=== PATIENT | female | born 1945 | race Caucasian/White ===

== ENCOUNTER → 2016-11-06 | Outpatient (CLI) | payer OTHER ==
[~2016-11-06] MED LIST: ACETAMINOPHEN PO; ALBUTEROL17 GM INH; ALPHAGAN P10 ML OU; ALPHAGAN P5 ML OP; AMLODIPINE BESYL5 MG PO; ANTACID325 MG PO; ASPIRIN EC81 M1 PO; ASPIRIN81 M1 PO; ASPIRIN81 M2 PO; ATORVASTATIN CA80 MG PO; BACTRIM DS TABL1 TAB PO; BENAZEPRIL HCL5 M1 PO; BENAZEPRIL PO; BENTYL20 MG PO; BUMETANIDE1 MG PO; BUMEX1 MG PO; BUMEX2 MG PO; BUPROPION HCL150 M1 PO; CALCITRIOL PO; CALCITRIOL0.25 MCG PO; CARVEDILOL12.5 MG PO; CEPHALEXIN500 M1 PO; CHANTIX1 DOSE-PAC PO; CHANTIX1 MG PO; CIPRO PO; CLEOCIN PO; CLOPIDOGREL75 MG PO; COLACE PO; COMBIVENT MININEB INH; COMBIVENT RESPIM4 GM INH; COREG PO; COREG12.5 M1; COREG12.5 MG PO; COREG3.125 MG PO; DICYCLOMINE HCL20 MG PO; DULOXETINE HCL60 M1 PO; ENDOCET 5-3251 EACH PO; FERATE240 MG PO; FERROUS GLUCON324 M1 PO; FLOVENT DISKU100 MCG IH; FLOVENT DISKU100 MCG INH; GABAPENTIN300 MG PO; GLUCOPHAGE XR500 MG PO; IMDUR-ER60 M1 PO; IPRATR-ALBUTEROL3 ML NEB; LASIX20 MG PO; LEVAQUIN PO; LEVAQUIN750 MG PO; LIPITOR40 MG PO; LISINOPRIL PO; LISINOPRIL20 MG PO; LOPRESSOR PO; LORTAB 10-5001 EACH PO; LORTAB 5/500 TA1 TA1 PO; LORTAB 7.5-5001 TAB PO; LOTENSIN40 MG PO; LOTREL 5-20 MG1 CAP PO; MAG-OX 400400 M1 PO; MAG-OXIDE400 MG PO; MAGNESIUM400 M1 PO; MAGNESIUM400 MG PO; METOCLOPRAMIDE H5 MG PO; NEURONTIN300 MG PO; NICOTINE TRANSD21 MG EXT; NITROSTAT0.4 MG SL; NORVASC10 MG PO; NOVOLIN 70/30 U13 M1 SQ; NOVOLIN 70/30 U13 ML INJ; NOVOLIN 70/30 V10 M1 SQ; NOVOLIN R100 UNITS/; NOVOLOG MI100 UNIT/1; NOVOLOG MI100 UNIT/1 SQ; NOVOLOG MI100 UNIT/1 SUBQ; NOVOLOG100 U/M2 SUBQ; NOVOLOG100 U/ML SUBQ; NOVOLOG7030; NOVOLOG7030 SUBQ; OMEPRAZOLE40 M1 PO; OMEPRAZOLE40 MG PO; ONDANSETRON HCL4 M1 PO; OXYCODONE-APAP1 EACH PO; PERCOCET 5/321 UDTAB PO; PHENERGAN25 MG PO; PREDNISONE PO; PRILOSEC PO; PRILOSEC40 MG PO; PROAIR HFA8.5 GM IH; RANEXA500 MG PO; REGLAN10 MG PO; REMERON PO; ROCEPHIN10 GM PO; SERTRALINE HCL50 M1 PO; SIMVASTATIN20 MG PO; SODIUM BICARBO650 MG PO; SYMBICORT INH; VIBRAMYCIN100 M1 PO; VICODIN PO; VITAMIN D35000 UNI1 PO; VITAMIN D50000 UNIT PO; WELLBUTRIN XL PO; WELLBUTRIN XL150 MG PO; ZOCOR20 MG PO; ZOFRAN ODT4 MG PO; ZOFRAN PO; ZOLOFT50 MG PO; ZOSYN3.375 GM IV; [UNRECOGNIZED DRUG - OTHER]
--- NOTE | ~2016-11-06 | US128 ---
[id number] [facility] [address] [place], [place] [address] [id number] O MR#: [id number] Acc #: [id number] NAME: TYLER HIGHTOWER : 1945 SEX: F STUDY DATE/TIME: 11/06/2016 16:09 UNIT: [facility] ROOM: STUDY DESCRIPTION: Thyroid Attending Physician: Cem Ríos M.D. Referring Physician: Cem Ríos M.D. Ordering Physician: Cem Ríos M.D. Primary Care Physician: Soy Avalos M.D. MEDICAL IMAGING REPORT This report is preliminary unless electronic signature is present EXAM Thyroid ultrasound, 11/06/2016. HISTORY Follow up palpable nodule right thyroid lobe. Recent onset of difficulty swallowing due to right thyroid lobe nodule. FINDINGS The right thyroid lobe measured 3.6 cm x 2.1 cm x 2.3 cm, while the left lobe measured 2.4 cm x 1.1 cm x 1 cm. The isthmus measured approximately 4 mm. There is a 2.3 cm x 2.2 cm x 2.3 cm solid nodule in the lower pole of the right thyroid lobe. Accounting for differences in measuring technique by the industrial engineering technologist, there has been no significant interval change in the nodule compared with 04/03/2016. Multiple cystic and solid nodules are seen scattered throughout the left thyroid lobe, the largest measuring 8 mm. There are no masses extrinsic to the thyroid. Normal blood flow is seen throughout both thyroid lobes. IMPRESSION Accounting for differences in measuring technique of the right thyroid lobe nodule by the industrial engineering technologist, there has been no significant interval change in the large nodule in the right thyroid lobe compared with 04/03/2016. Dictated by... Mario Green M.D. THIS IS AN ELECTRONICALLY VERIFIED REPORT Mario Green M.D. at 11/08/2016 8:27 AM ARCHANA/ailyn TD: 11/07/2016 09:15 JOB #: [id number] MEDICAL IMAGING REPORT Page 1 of 1 COPY
== END | disposition home or self-care (01) ==
LOC: CGUS 14:33
DX: E04.1 Nontoxic single thyroid nodule (principal)
CPT/HCPCS: 76536

== ENCOUNTER 2017-02-08 09:41 | Inpatient (IN) | payer OTHER ==
[~2017-02-08] VITALS: Ht 162.6 cm; Wt 76.0 kg
--- NOTE | ~2017-02-08 | HP ---
Unit #: [id number] #: [id number] Patient: TYLER HIGHTOWER [id number] [address] [place], [place] [address] [id number] I MR#: [id number] NAME: TYLER HIGHTOWER ROOM: 76668 Age: 71 Sex: F Admission Date: 02/08/2017 : 1945 Attending Physician: Soy Avalos M.D. Primary Care Physician: Soy Avalos M.D. HISTORY AND PHYSICAL HISTORY OF PRESENT ILLNESS The patient is a 71-year-old white female with a history of COPD, coronary artery disease, severe left ventricular dysfunction, chronic systolic CHF, stage 4 chronic kidney disease, hypertension, hyperlipidemia, type 2 diabetes mellitus, and recent fall with fracture of right hip, who was at [place] and had open reduction and internal fixation. She has been [facility] the detention unit for rehab where over the past few days she has had multiple problems with worsening renal function, hyperkalemia, and anemia, and then this morning she had acute mental status changes with delirium. She arrived in the emergency room and was found to have multiple abnormal labs. She has already been seen by Nephrology and set up for dialysis tonight. A catheter was placed by Interventional Radiology. The patient can give no history. She opens her eyes off and on, but she is pulling things out of the air, doing things in the room, and will not follow any commands. Her is at the bedside during the history and physical examination. She was given multiple meds here for possible infection, as well as hyperkalemia. PAST MEDICAL HISTORY I am somewhat limited because [employer] in the computer is down. She has a history of: 1. Coronary artery disease. 2. Peripheral arterial disease. 3. Chronic systolic CHF. 4. Severe left ventricular dysfunction. 5. Hypertension. 6. Hyperlipidemia. 7. Anemia. 8. Chronic kidney disease stage IV. 9. Type 2 diabetes mellitus. 10. Known right thyroid nodule benign by biopsy. 11. Depression. PAST SURGICAL HISTORY 1. Cholecystectomy. 2. Bilateral transmetatarsal amputations. 3. Tubal ligation. 4. ERCP for bile duct stone. 5. Open reduction and internal fixation right hip fracture. ALLERGIES No known drug allergies. MEDICATIONS PRIOR TO ADMISSION Unit #: [id number] #: [id number] Patient: TYLER HIGHTOWER 1. Calcitriol 0.25 mcg p.o. daily. 2. Aspirin 81 mg p.o. daily. 3. Ferrous gluconate 324 mg daily. 4. DuoNebs per unit dose 4 times daily. 5. Sodium bicarbonate 650 mg t.i.d. 6. Magnesium 400 mg b.i.d. 7. Symbicort 160/4.5 at 2 puffs q.12. 8. Ranexa 500 mg q.12 hours. 9. Bumex 1 mg p.o. b.i.d. 10. Tylenol 1000 mg b.i.d. 11. Lopressor 12.5 mg b.i.d. 12. Remeron 7.5 mg at bedtime. 13. Norvasc 10 mg daily. 14. Lipitor 80 mg daily. 15. Plavix 75 mg daily. 16. Cymbalta 60 mg daily. 17. Rocephin 1 g daily for the past 5 days. 18. Zofran 4 mg p.o. q.4 hours p.r.n. 19. Novolin R on sliding scale. SOCIAL HISTORY Current smoker of one pack per day. No alcohol or street drug use. FAMILY HISTORY Unobtainable. PHYSICAL EXAMINATION ER VITAL SIGNS: Temperature 98.1, pulse 55, respirations 17, blood pressure 129/62, and O2 saturation 95% on two liters. HEENT: Unremarkable except for pale mucous membranes. NECK: Supple without JVD, bruit, adenopathy, or thyromegaly. CHEST: Diffusely decreased breath sounds but otherwise clear to auscultation without any audible rales or wheezes. HEART: Regular and bradycardic without an S3 gallop or murmur. ABDOMEN: Soft, large, nondistended, and nontender, with positive with bowel sounds and no hepatosplenomegaly. EXTREMITIES: No clubbing, cyanosis, or edema. GENITOURINARY/RECTAL: Deferred. NEUROLOGIC: Unobtainable as mentioned above because of the patient's acute delirium. DIAGNOSTIC STUDIES LABORATORY: Lactic acid normal x2 sets. Cardiac enzymes normal. Ammonia level normal. White count was 11, hemoglobin 7, and platelets were normal. Potassium was 5.6, BUN 61, creatinine 4.4, and GFR 9.8. PT-INR is 1.4. BNP is 2677. On two liters, pH is 7.49, PCO2 is 37, and PAO2 is 64. Urinalysis, I cannot find the results. IMAGING: CT scan of the head showed volume loss and no active disease. These are all taken from handwritten notes from the ER physician as again, the computer is down. CT scan of the chest showed a stable right thyroid mass, right greater than left, and moderate bilateral pleural effusions with associated bibasilar atelectasis. CT scan of the abdomen and pelvis showed anasarca and some periportal edema but is otherwise normal without any acute disease. CARDIOLOGY: EKG shows (1) at 55 beats per minute and nonspecific ST abnormality. Unit #: [id number] #: [id number] Patient: TYLER HIGHTOWER IMPRESSION 1. Acute delirium of questionable etiology. 2. Acute liver failure with an AST of 1058 and an ALT of 628. 3. Acute on chronic kidney disease. 4. Hyperkalemia. 5. Hypermagnesemia. 6. Hyperphosphatemia. 7. Anemia. 8. Chronic systolic congestive heart failure. 9. Coronary artery disease. 10. Peripheral arterial disease. 11. Hypertension. 12. Type 2 diabetes mellitus. PLAN As mentioned above, she will be admitted to the ICU. She is on broad spectrum antibiotics for possible sepsis. She has had a bedside swallow evaluation. Will consult GI for acute hepatitis. Follow her liver functions and pro times. Oxygen to keep her saturations above 90. Resume DuoNebs and hold other home medications. Consult highway research engineer for ICU care. Accu-Cheks a.c. and at bedtime. Low-dose sliding scale insulin. Lovenox for DVT prophylaxis. Nephrology has been consulted. A catheter has been placed and hemodialysis ordered. Transfuse two units of packed RBCs to keep her hemoglobin above 8. Further evaluation pending results of the above. Dictated by Javed Lynch TD: 02/08/2017 18:51 JOB #: [id number] HISTORY AND PHYSICAL Page 1 of 1 X Soy Avalos MD X HISTORY AND PHYSICAL
--- NOTE | ~2017-02-08 | CT71 ---
[facility] A Service of [facility] RADIOLOGY TEXT RESULTS PATIENT: TYLER HIGHTOWER LOCATION: [place] [address]-11 : [birth year] UNIT #: [id number] AGE: [address]: Soy Avalos MD SEX: F ORDER DR: [id number] [facility] [address] [place], [place] [address] [id number] I MR#: [id number] Acc #: [id number] NAME: TYLER HIGHTOWER : 1945 SEX: F STUDY DATE/TIME: 02/11/2017 9:13 UNIT: [facility] ROOM: [facility] STUDY DESCRIPTION: CT Head Wo Contrast Attending Physician: Soy Avalos M.D. Ordering Physician: Soy Avalos M.D. Primary Care Physician: Soy Avalos M.D. MEDICAL IMAGING REPORT This report is preliminary unless electronic signature is present EXAM Head CT without contrast HISTORY Confusion, onset 4 days ago. TECHNIQUE Axial images were obtained without contrast and compared with 02/08/2017. This CT exam was performed with one or more of the following radiation dose reduction techniques: automatic exposure control, adjustment of mA and/or kV according to patient size, and iterative reconstruction. FINDINGS Generalized atrophy is again seen. There is a small chronic infarct in the mid brittany just to the left of midline. There is no evidence of mass lesion, hemorrhage or edema. No new lesions are seen when compared to the previous exam. IMPRESSION Atrophy with chronic ischemic changes. No change from previous examination. STAT * RESULT Dictated by... Munir Blankenship M.D. THIS IS AN ELECTRONICALLY VERIFIED REPORT Munir Blankenship M.D. at 02/11/2017 9:58 AM RLF/krzysztof [facility] A Service of [facility] RADIOLOGY TEXT RESULTS PATIENT: TYLER HIGHTOWER LOCATION: [facility]2-11 : [birth year] UNIT #: [id number] AGE: [address]: Soy Avalos MD SEX: F ORDER DR: TD: 02/11/2017 09:25 JOB #: [id number] MEDICAL IMAGING REPORT Page 1 of 1 COPY
--- NOTE | ~2017-02-08 | A ---
[facility] Nutrition Therapy DATE: 02/09/17 Patient: TYLER HIGHTOWER Physician: RACHELE Address: [address] [address] [facility] Room/Bed: [address], Zip: [place] [address] Admit Date: 02/08/17 Date of : [birth year] Height: 5 4 Weight: 177 80.28 NUTRITIONAL ASSESSMENT: REASON: ONE NUTRITION RISK PT RE: POOR PO INTAKE PT IS 71 Y.O. FEMALE ADMITTED FOR AMS, [place], RESP FAILURE PMH: T2DM, CHF, HTN, HLD, COPD, OA, GERD, IBS, CAD, CKD STAGE 4 (HD), PAD, GASTROPARESIS Anthropometrics: 5'4", WT: 160# (PER ) (73 KG), BMI: 27.5 -PER FlexMinder, PT WEIGHS ~176#-FLUID RETENTION NOTED Labs: GLU: 64, BUN: 38, CREAT: 3.2, CA+:7.8, ALB: 2.9, AST: 1058, ALT: 628, M.3, PHOS: 5.3, GFR: 13.9 Meds: NACL, NOVOLOG I/O & Bowel function: 100/2024 Skin Integrity: HX OF BILATERAL TRANSMETATARSAL AMPUTATIONS FOR GANRENE Estimated Nutrition Needs: 6928-7103 KCAL (22-26 KCAL/KG BW) 87-109 G PRO (1.2-1.5 G PRO/KG BW) FLUIDS CONSISTENT W/KCAL NEEDS OR MANAGE PER MD Assessment: CHART REVIEWED AND EVENTS NOTED. PT SEEN FOR ONE NUTRITION RISK PT RE: POOR PO INTAKE. PT NOT APPROPRIATE FOR DIET INTERVIEW AT TIME OF VISIT 2' CONFUSION AND DELIRIUM. AT BEDSIDE REPORTS PT TO HAVE DECREASED PO INTAKE 2' DECREASED APPETITE PAST SEVERAL DAYS. HE ADDS PT'S WEIGHT IS NORMALLY ~158-160#. PT ON CLEAR LIQUID DIET BUT ONLY ATE A FEW BITES (PER ). RD ENCOURAGED SLOW GRADUAL PO INTAKE, AGREED. PER RN AND CHART, ENVIRONMENTAL ADVISOR DOES NOT RECOMMEND PO DIET AT THIS TIME 2' RISK OF DYSPHAGIA D/T DEMENTIA NOTED. DHT PLACEMENT SCHEDULED AT THIS TIME BUT NO ORDER FOR ALTERNATIVE NUTRITION SUPPORT. PLANS FOR HD. RD TO FOLLOW. SEE RECOMMENDATIONS BELOW. Dx: INADEQUATE PROTEIN-ENERGY INTAKE R/T CURRENT DIAGNOSIS, PMH, CURRENT CLINICAL CONDITION AEB REPORT ABOVE, ENVIRONMENTAL ADVISOR EVAL. Intervention: 1. CLEAR LIQUID (ENVIRONMENTAL ADVISOR RECOMMENDS NPO) Monitoring, Evaluation and Goals: 1. ENTERAL NUTRITION; ONCE INITIATED, PROVIDE >80% TOTAL VOLUME X 24 HOURS AT GOAL 2. ORAL INTAKE; ADVANCE DIET AND CONSUME/TOLERATE >80% MEALS 3. WEIGHTS; PROMOTE GRADUAL WEIGHT LOSS TOWARDS HEALTHY [facility] Nutrition Therapy DATE: 02/09/17 Patient: TYLER CAMPBELL Physician: RACHELE Address: [address] [facility] Room/Bed: [address], Zip: [place] [address] Admit Date: 02/08/17 Date of : [birth year] Height: 5 4 Weight: 177 80.28 4. LABS; WNL 5. GI; PROMOTE REGULAR GI FUNCTION MONITOR: -DIET ADVANCEMENT/ENVIRONMENTAL ADVISOR EVAL -PO INTAKE/APPETITE -PLANS FOR SUPPORT -WEIGHTS -LABS Recommendations: 1. ONCE MEDICALLY FEASIBLE, ADVANCE DIET PER ENVIRONMENTAL ADVISOR + CC/2 GM NA DIET 2. IF PT NOT APPRORPATE FOR DIET ADVANCEMENT, RECOMMEND TO BEGIN ALTERNATIVE NUTRITION SUPPORT (VIA DHT) OF NEPRO @ 20 ML/HR, ADVANCE 10 ML q 6 HOURS TO GOAL RATE OF 40 ML/HR + SUGAR-FREE PROSTAT ONCE DAILY -PROVIDES 1828 KCAL, 93 G PRO, 701 ML FREE H20 ADD FREE H20 FLUSHES PER MD 3. ONCE PT'S ELECTROLYTES WITHIN NORMAL RANGE, RECOMMEND ALTERNATIVE NUTRITION SUPPORT OF GLUCERNA 1.5 @ 20 ML/HR, ADVANCE 10 ML q 6 HOURS TO GOAL RATE OF 45 ML/HR -PROVIDES 1620 KCAL, 89 G PRO, 821 ML FREE H20 ADD FREE H20 FLUSHES PER MD RD WILL F/U PER PROTOCOL PT IS MODERATELY COMPROMISED Respectfully, PENNIE RENAE MS, RD, LD [facility] cc: client file
--- NOTE | ~2017-02-08 | CR72 ---
[facility] A Service of [facility] RADIOLOGY TEXT RESULTS PATIENT: TYLER HIGHTOWER LOCATION: [address] : [birth year] UNIT #: [id number] AGE: [address]: Soy Avalos MD SEX: F ORDER DR: [id number] [facility] [address] [facility] [place], [place] [address] [id number] I MR#: [id number] Acc #: [id number] NAME: TYLER HIGHTOWER : 1945 SEX: F STUDY DATE/TIME: 02/10/2017 5:36 UNIT: [facility] ROOM: [facility] STUDY DESCRIPTION: CR Chest Single View Portable Attending Physician: Soy Avalos M.D. Ordering Physician: Zeus Miguel M.D. Primary Care Physician: Soy Avalos M.D. MEDICAL IMAGING REPORT This report is preliminary unless electronic signature is present EXAM Chest x-ray, portable. CLINICAL HISTORY Short of air, weakness, altered mental status, line placement. COMMENT Single frontal portable view of the chest timed 05:36 on 02/10/2017. COMPARISON Compared to 02/09/2017. FINDINGS The double-lumen catheter terminates right atrium. The feeding tube passes at least into the stomach but the tip is not on the film. It has been advanced since prior. Borderline heart size. Mild vascular congestion, interstitial edema and patchy airspace disease centrally in the lung bases. Suspect some layering of pleural fluid. No pneumothorax. IMPRESSION 1. Interval advancement of the feeding tube. It is now at least in the stomach but the tip is not on the film. 2. Findings likely due to mild congestive failure. Follow up to ensure resolution and exclude underlying aspiration or pneumonia recommended. This is probably mildly worse since yesterday's film. Dictated by... Nathalie Parham M.D. THIS IS AN ELECTRONICALLY VERIFIED REPORT Nathalie Parham M.D. at 02/11/2017 7:18 AM SAC/jt [facility] A Service of [facility] RADIOLOGY TEXT RESULTS PATIENT: TYLER HIGHTOWER LOCATION: [facility] : [birth year] UNIT #: [id number] AGE: [address]: Soy Avalos MD SEX: F ORDER DR: TD: 02/10/2017 17:19 JOB #: [id number] MEDICAL IMAGING REPORT Page 1 of 1 COPY
--- NOTE | ~2017-02-08 | EKG ---
PATIENT: TYLER HIGHTOWER UNIT #: [id number] Ventricular Rate: 55 BPM Atrial Rate: 55 BPM P-R Interval: 172 ms QRS Duration: 106 ms Q-T Interval: 510 ms QTC Calculation(Bezet): 487 ms P [place]: 39 degrees Calculated R [place]: 33 degrees Calculated T [place]: 39 degrees Diagnosis Line: Sinus bradycardia Diagnosis Line: Nonspecific ST abnormality Diagnosis Line: Abnormal ECG Diagnosis Line: When compared with ECG of 15-AUG-2016 19:06, Diagnosis Line: Vent. rate has decreased BY 41 BPM Diagnosis Line: ST no longer depressed in Inferior leads Diagnosis Line: ST no longer depressed in Lateral leads Diagnosis Line: T wave inversion no longer evident in Diagnosis Line: Anterolateral leads Diagnosis Line: Confirmed by LATISHA BABB MD ([id number]) on Diagnosis Line: 02/09/2017 7:59:23 AM INTERPRETING MD: SKINNY HERNANDEZ
--- NOTE | ~2017-02-08 | CO ---
Unit #: [id number] #: [id number] Patient: TYLER HIGHTOWER [id number] [address] [place], [place] [address] [id number] I MR#: [id number] NAME: TYLER HIGHTOWER ROOM: [facility] Age: 71 Sex: F Admission Date: 02/08/2017 : 1945 Attending Physician: Soy Avalos M.D. Primary Care Physician: Soy Avalos M.D. Consultation Date: 02/09/2017 CONSULTATION REPORT REASON FOR CONSULTATION Abnormal LFTs. HISTORY OF PRESENTING ILLNESS Ms. Hsieh is a 71-year-old lady. She was fine until 2 weeks ago. When she had a fracture of the femur, she was taken to [facility], where she had surgery and fixation. She was doing fine until 3 days ago on rehab, where she started with confusion and was transferred over to the care here. Since then, she has had respiratory problems and has been running low grade fever also. The patient is pleasantly confused at this time also, does not seem to be in any distress. Her LFTs were significantly elevated. She had minimal LFT abnormalities in the past and has had no clear liver problems, otherwise she does not drink alcohol or had any hepatitis of viral origin in the past. She did have common bile duct stones in 2010, which was removed using ERCP and since then, she has been doing fine. PAST MEDICAL HISTORY Significant for coronary artery disease, severe congestive heart failure, hypertension, hyperlipidemia, chronic kidney disease, type 2 diabetes mellitus, depression. She is status post cholecystectomy. ALLERGIES None. MEDICATIONS Reviewed. REVIEW OF SYSTEMS Unable to obtain. SOCIAL HISTORY Smoker. Denies alcohol or drug abuse per chart review. FAMILY HISTORY Unremarkable. PHYSICAL EXAMINATION GENERAL: Confused, mildly irritated, no acute distress. VITAL SIGNS: Temperature 100.3, pulse 73, respirations 20, blood pressure 150/79. HEENT: Pupils equal and reactive. Sclerae are anicteric. Oral mucosa Unit #: [id number] #: [id number] Patient: TYLER HIGHTOWER moist. NECK: No JVD. No lymphadenopathy. CHEST: Few scattered rhonchi bilaterally. CARDIOVASCULAR: Regular rate and rhythm. No murmurs. ABDOMEN: Soft, nontender, and nondistended. EXTREMITIES: Without clubbing, cyanosis, or edema. NEUROLOGIC: Detailed examination deferred. SKIN: Warm and dry. DIAGNOSTIC STUDIES LABORATORY RESULTS: CBC with a hemoglobin of 8.9, white count at 10, platelet count of 218. Coags are normal. Chemistries show BUN and creatinine 38 and 3.2, significant elevation from her baseline. Total bilirubin of 1.9. AST 1058, baseline at 26 three days ago; ALT of 628, again has been normal 3 days ago; alkaline phosphatase of 323, has mildly been elevated for a long time. Amylase and lipase not done. BNP was 2677. Ammonia level was 35. ASSESSMENT AND PLAN 1. The patient with acute severe liver function dysfunction given her bilaterally effusions and wall edema as well as history of chronic severe congestive failure, congestive hepatopathy is most likely, shock liver cannot be ruled out; however, she has not had any significant hypotensive. Given her weight, I would not be surprised she has underlying mass or possibly even early cirrhosis; however, never has been diagnosed with the same. At this time, we will continue with conservative treatment, optimize treatment of congestive heart failure, and also we will add lactulose and enteral nutrition via Dobbhoff tube. There is no evidence at this time of any obstruction of the bile duct based on the CT scan findings. We will continue to watch however. She has been on antibiotics. 2. Anemia appears acute on chronic. She does have a history of multiple polyps in the past. We will consider colonoscopy and upper endoscopy after she has been stable for further evaluation of anemia. 3. Renal function. 4. Congestive heart failure. Thank you, Dr. Avalos for this interesting consult. We will follow along. Dictated by... Javed Ospina/ellis TD: 02/11/2017 18:53 JOB #: [id number] CONSULTATION REPORT Page 1 of 1 X Alvarez Avendaño MD CONSULTATION REPORT
--- NOTE | ~2017-02-08 | EKG ---
PATIENT: TYLER HIGHTOWER UNIT #: [id number] Ventricular Rate: 81 BPM Atrial Rate: 81 BPM P-R Interval: 164 ms QRS Duration: 96 ms Q-T Interval: 424 ms QTC Calculation(Bezet): 492 ms P Brice: 58 degrees Calculated R Brice: 28 degrees Calculated T Brice: 165 degrees Diagnosis Line: Normal sinus rhythm Diagnosis Line: ST and T wave abnormality, consider anterolateral Diagnosis Line: ischemia Diagnosis Line: Prolonged QT Diagnosis Line: Abnormal ECG Diagnosis Line: When compared with ECG of 10-FEB-2017 07:38, Diagnosis Line: T wave inversion now evident in Anterolateral Diagnosis Line: leads Diagnosis Line: Confirmed by TONI JIN MD ([id number]) on Diagnosis Line: 02/13/2017 4:24:00 PM INTERPRETING MD: LEILANI
--- NOTE | ~2017-02-08 | CT4 ---
[facility] A Service of [facility] & [facility] RADIOLOGY TEXT RESULTS PATIENT: TYLER HIGHTOWER LOCATION: [facility] CICCU2-11 : 45 UNIT #: [id number] AGE: [address]: Soy Avalos MD SEX: F ORDER DR: [id number] [facility] [address] [place], [place] [address] [id number] E MR#: [id number] Acc #: [id number] NAME: TYLER HIGHTOWER : 1945 SEX: F STUDY DATE/TIME: 02/08/2017 13:05 UNIT: PB ROOM: STUDY DESCRIPTION: CT Abd and Pelv Wo Cont Attending Physician: Niya Leal M.D. Ordering Physician: Niya Leal M.D. Primary Care Physician: Soy Avalos M.D. MEDICAL IMAGING REPORT This report is preliminary unless electronic signature is present EXAM CT abdomen and pelvis, 02/08/2017. HISTORY Agitated, confused, disoriented, lethargic, weakness with abnormal labs, onset yesterday, sent from [facility] for further evaluation. Prior history of gallbladder, cataracts, tubal ligation, ERCP, bile duct stone, 2 toes removed right foot, right leg vein bypass, right and left foot toe amputations. Coronary artery disease, COPD, hip fracture. TECHNIQUE CT abdomen and pelvis performed without administration of oral or intravenous contrast. This CT exam was performed with one or more of the following radiation dose reduction techniques: automatic exposure control, adjustment of mA and/or kV according to patient size, and iterative reconstruction. COMPARISON 05/15/2016. FINDINGS NOTE: See today's dedicated CT chest for full discussion of findings above diaphragm. Moderate to large bilateral pleural effusions. Airspace disease in the bilateral lung bases could involve components of atelectasis and/or pneumonia. See chest CT. There is stable mild cardiac enlargement. No pericardial effusion seen on this examination. The liver shows no focal abnormality. There may be mild periportal edema. Extensive vascular calcifications. Status post cholecystectomy. No biliary ductal obstruction. Spleen, pancreas unremarkable. The bilateral adrenal adenomas unchanged from prior study. The bilateral kidneys show no hydronephrosis or nephrolithiasis. No indication of cystic or solid mass lesion, and no perinephric inflammatory STS. [facility] A Service of [facility] & [facility] RADIOLOGY TEXT RESULTS PATIENT: TYLER HIGHTOWER LOCATION: [facility] CICCU2-11 : 45 UNIT #: [id number] AGE: [address]: Soy Avalos MD SEX: F ORDER DR: change. CT PELVIS: No inguinal adenopathy. Postoperative change right groin. Patient appears to be status post right common femoral to distal bypass graft. Distal extent of graft not visualized. Urinary bladder decompressed with [place] catheter. Uterus and adnexal regions unremarkable. There is a rectal tube in place. No pelvic or retroperitoneal adenopathy. Small hiatal hernia. Stable. Remainder of visualized stomach, small bowel, appendix and colon unremarkable. Moderate to marked generalized body wall edema more pronounced on the right than left. There is an area of localized hypodense material adjacent to the right hip. It contains some areas of relative hyperintensity and measures 5.3 cm x 2.7 cm x 4.4 cm. Patient is status post open reduction, internal fixation of a right femoral intertrochanteric fracture. Fracture plane remains evident without evidence of significant healing at this time. Please correlate the time course from surgery. I would favor that the localized mixed density fluid adjacent to the hip is postoperative evolving hematoma/seroma. Extensive atherosclerotic arterial calcifications. No aneurysm. The bony structures show degenerative change in spine. Postoperative changes right hip. IMPRESSION 1. Please see complete dictation above for full details and please see separate dictation for CT of the chest. At least moderate bilateral pleural effusions with subjacent airspace disease that could involve components of atelectasis or pneumonia. 2. Status post cholecystectomy. There appears to be some mild periportal edema. 3. Bilateral adrenal adenomas stable. 4. No acute renal abnormalities. 5. No acute abnormalities seen along the alimentary canal. Stable small hiatal hernia. Normal appendix. Rectal tube in place. 6. Moderate to marked body wall edema more pronounced on the right than left. Correlate with the patient's fluid status. Edema extends in the visualized thighs. 7. Status post open reduction, internal fixation, intertrochanteric fracture, right femur. Fracture plane remains evident without indication of significant healing at this time. Correlate with time course from surgery. Adjacent to the right hip, there is a mixed density predominately hypodense localized collection favored to be evolving hematoma/seroma, measuring up to 5.3 cm in diameter. Correlate with exam. No associated air. No indication of abscess. 8. Extensive atherosclerotic arterial calcifications. Evidence of prior right common femoral to distal bypass graft. Dictated by... STS. [facility] A Service of [facility] RADIOLOGY TEXT RESULTS PATIENT: TYLER HIGHTOWER LOCATION: [address] : [birth year] UNIT #: [id number] AGE: [address]: Soy Avalos MD SEX: F ORDER DR: Mitchell Patricia M.D. THIS IS AN ELECTRONICALLY VERIFIED REPORT Mitchell Patricia M.D. at 02/09/2017 9:39 PM DAYNA/tra TD: 02/08/2017 16:49 JOB #: [id number] MEDICAL IMAGING REPORT Page 1 of 1 COPY
--- NOTE | ~2017-02-08 | CO ---
Unit #: [id number] #: [id number] Patient: TYLER HIGHTOWER [id number] [address] [place], [place] [address] [id number] I MR#: [id number] NAME: TYLER HIGHTOWER ROOM: [facility] Age: 71 Sex: F Admission Date: 02/08/2017 : 1945 Attending Physician: Soy Avalos M.D. Primary Care Physician: Soy Avalos M.D. Consultation Date: 02/08/2017 CONSULTATION REPORT REASON FOR CONSULTATION Hyperkalemia and worsening creatinine level. HISTORY OF PRESENT ILLNESS The patient is a 71-year-old white female with known history of hypertension, type 2 diabetes, diabetic nephropathy per Dr. Bruce as per her office visits with previously normal diastolic filling 52% ejection fraction, normal right ventricular systolic function, history of coronary artery disease with coronary stent placement in 2014, baseline creatinine around 2.5 to 3 and was transferred from [facility] on 01/28/2017 to rehab and developed worsening renal function with decreasing urine output and recurrent hyperkalemia with potassium level of 6 and a creatinine level of 4.6 with minimal urine output and confusion and altered mental status, transferred to the ER. The patient's past medical history is significant for hypertension; diabetes; coronary artery disease, status post coronary artery stent placement; status post right hip fracture, open reduction and internal fixation; anemia attributed to CKD; previously normal right ventricular function and normal ejection fraction. The patient has no reported vomiting. She had some diarrhea after getting Kayexalate in the rehab. PAST MEDICAL HISTORY Significant for hypertension, hyperlipidemia, stage 4 chronic kidney disease attributed to diabetic nephropathy, type 2 diabetes, coronary artery disease, peripheral arterial disease. PAST SURGICAL HISTORY Significant for cholecystectomy, bilateral transmetatarsal amputation, tubal ligation, ERCP with choledocholithotomy, open reduction and internal fixation of right hip fracture. ALLERGIES No known drug allergies. MEDICATIONS At the assisted included calcitriol 0.25 mcg by mouth daily, aspirin 81 mg daily, ferrous sulfate 324 mg daily, sodium bicarbonate 650 mg t.i.d., Ranexa 500 mg q.12, Bumex 1 mg b.i.d., Lopressor 12.5 b.i.d., Norvasc 10 mg daily, Lipitor 80 mg daily, Plavix 75 mg daily, Cymbalta 60 mg daily, Rocephin IV, Novolin on sliding scale. SOCIAL HISTORY History of one pack per day with several pack years history of smoking. Does not drink. Unit #: [id number] #: [id number] Patient: TYLER HIGHTOWER FAMILY HISTORY Unremarkable for end-stage renal disease. PHYSICAL EXAMINATION GENERAL: The patient fairly confused and disoriented. Clinically uremic. VITAL SIGNS: Blood pressure 129/62, heart rate 55 per minute, temperature 98.1. HEENT: Extraocular movement intact. Sclerae anicteric. CHEST: Basal crackles. HEART: S1, S2 audible. ABDOMEN: Soft. No organomegaly. No guarding. No rigidity. No rebound tenderness. EXTREMITIES: 1 to 2+ edema. OUTSIDE DEALER SALES REPRESENTATIVE: Limited. Motor system seemed intact. DIAGNOSTIC STUDIES LABORATORY RESULTS: Sodium 136, potassium 5.5 after Kayexalate, chloride 102, CO2 of 26, BUN 45, creatinine 3.1, glucose 108, calcium 8.5. WBC 10.9, H and H 8.1 and 25.1 with a platelet count of 282. IMPRESSION 1. Acute kidney injury with uremia. Clinically, we will start and initiate dialysis and dialyze for 1 to 2 days and follow the renal function. Also request 24-hour urine for creatinine clearance. 2. Volume overload. We will UF as tolerated. 3. Anemia of chronic kidney disease. 4. Hyperkalemia, dialyze and follow levels. 5. Metabolic encephalopathy. 6. Status post right hip fracture. 7. Hypertension. 8. Diabetes. 9. Diabetic nephropathy. Dictated by... Toan Prieto M.D. RA/ellis TD: 02/11/2017 22:39 JOB #: [id number] CONSULTATION REPORT Page 1 of 1 X Toan Prieto MD CONSULTATION REPORT
--- NOTE | ~2017-02-08 | EKG ---
PATIENT: TYLER HIGHTOWER UNIT #: [id number] Ventricular Rate: 81 BPM Atrial Rate: 81 BPM P-R Interval: 154 ms QRS Duration: 104 ms Q-T Interval: 420 ms QTC Calculation(Bezet): 487 ms P Lockney: 62 degrees Calculated R Lockney: 45 degrees Calculated T Lockney: 29 degrees Diagnosis Line: Normal sinus rhythm Diagnosis Line: Nonspecific ST and T wave abnormality Diagnosis Line: Abnormal ECG Diagnosis Line: When compared with ECG of 08-FEB-2017 10:34, Diagnosis Line: Nonspecific T wave abnormality now evident in Diagnosis Line: Lateral leads Diagnosis Line: Confirmed by BONNY DEY MD ([id number]) on Diagnosis Line: 02/11/2017 10:03:48 AM INTERPRETING ANGÉLICA TREVINO
--- NOTE | ~2017-02-08 | CR72 ---
[facility] A Service of [facility] & [facility] RADIOLOGY TEXT RESULTS PATIENT: TYLER HIGHTOWER LOCATION: [address]- : [birth year] UNIT #: [id number] AGE: [address]: Soy Avalos MD SEX: F ORDER DR: [id number] [facility] [address]. [place], [place] [address] [id number] I MR#: [id number] Acc #: [id number] NAME: TYLER HIGHTOWER : 1945 SEX: F STUDY DATE/TIME: 02/12/2017 4:41 UNIT: [facility] ROOM: [facility] STUDY DESCRIPTION: CR Chest Single View Portable Attending Physician: Soy Avalos M.D. Ordering Physician: Zeus Miguel M.D. Primary Care Physician: Soy Avalos M.D. MEDICAL IMAGING REPORT This report is preliminary unless electronic signature is present EXAM Portable chest. INDICATIONS Follow up respiratory failure and central venous catheter. FINDINGS Today's portable view of the chest is compared with yesterday's study. There has been no change. The Dobbhoff tube tip is in the stomach. The central venous catheter has its tip in the right atrium and there are right greater than left perihilar infiltrates. Dictated by... Caleb Barros M.D. THIS IS AN ELECTRONICALLY VERIFIED REPORT Caleb Barros M.D. at 02/12/2017 1:36 PM FEL/bd TD: 02/12/2017 13:17 JOB #: [id number] MEDICAL IMAGING REPORT Page 1 of 1 COPY
--- NOTE | ~2017-02-08 | CR63 ---
[facility] A Service of [facility] RADIOLOGY TEXT RESULTS PATIENT: TYLER HIGHTOWER LOCATION: [facility] : 45 UNIT #: [id number] AGE: [address]: Soy Avalos MD SEX: F ORDER DR: [id number] [place] [id number] [facility]. [place], [place] [address] [id number] I MR#: [id number] Acc #: [id number] NAME: TYLER HIGHTOWER : 1945 SEX: F STUDY DATE/TIME: 02/18/2017 8:28 UNIT: [address] ROOM: [facility] STUDY DESCRIPTION: CR Chest 2 View Attending Physician: Soy Avalos M.D. Ordering Physician: Raymond Aparicio M.D. Primary Care Physician: Soy Avalos M.D. MEDICAL IMAGING REPORT This report is preliminary unless electronic signature is present EXAM Two views of the chest COMPARISON February 14, 2017 and February 12, 2017. INDICATION The patient is a 74-year-old female with altered mental status and dyspnea for 10 days. Recent fall. History of hypertension. Coronary artery disease and CHF. Anemia. FINDINGS Cardiomediastinal silhouette is normal. There is calcification of the aortic arch. Azygos lobe is again noted in the right upper chest. Right internal jugular catheter is removed. There are increased small bilateral pleural effusions with associated increased bibasilar atelectasis, less likely pneumonia. IMPRESSION Increased bibasilar opacities likely reflecting atelectasis given developing small bilateral pleural effusions. Correlation to exclude signs of pneumonia recommended. Mild calcification of the aortic arch. Normal heart size. Dictated by... Sergio Yi M.D. THIS IS AN ELECTRONICALLY VERIFIED REPORT Sergio Yi M.D. at 02/25/2017 4:18 PM [facility] A Service of [facility] RADIOLOGY TEXT RESULTS PATIENT: TYLER HIGHTOWER LOCATION: [facility] : 45 UNIT #: [id number] AGE: [address]: Soy Avalos MD SEX: F ORDER DR: Nicole TD: 02/18/2017 14:12 JOB #: [id number] MEDICAL IMAGING REPORT Page 1 of 1 COPY
--- NOTE | ~2017-02-08 | CO ---
Unit #: [id number] #: [id number] Patient: TYLER HIGHTOWER [id number] [address] [address] [id number] I MR#: [id number] NAME: TYLER HIGHTOWER ROOM: [facility] Age: 71 Sex: F Admission Date: 02/08/2017 : 1945 Attending Physician: Soy Avalos M.D. Primary Care Physician: Soy Avalos M.D. Consultation Date: 02/08/2017 CONSULTATION REPORT We were asked to see her by Dr. Avalos. REASON FOR CONSULTATION Respiratory failure. Ms. Hightower is a 71-year-old female with a history of COPD who apparently had hip surgery at [place] a couple of weeks ago. She went to [facility]. She has been noted to be more confused, maybe a bit short of air. She will talk to me but she wasn't making complete sentence. She did say she was a little more short of breath where she answered yes when I asked her. She did indicate that she smoked but she said her last cigarette was last night and, indeed if she was at [facility], I think that is unlikely. I suspect she probably did smoke at some point but just not likely last night. She does complain of a bit of a cough but, again, her entire history is probably suspect. PAST MEDICAL HISTORY Otherwise significant for: 1. Systolic congestive heart failure. 2. COPD, as mentioned. 3. History of hypoxemia but right now she is on 2 L and saturating okay. 4. Coronary artery disease. 5. Peripheral arterial disease. 6. Status post toe amputations. 7. Hyperlipidemia. 8. Type 2 diabetes. 9. Diabetic neuropathy. 10. Diabetic nephropathy. 11. Hypertension. 12. Gastroparesis. 13. Glaucoma. 14. Chronic kidney disease, basically stage 4. 15. History of a right thyroid nodule. PAST SURGICAL HISTORY Surgeries include: 1. Bilateral transmetatarsal amputations for gangrene. That is, she has no toes left. 2. Cholecystectomy. 3. ERCP. MEDICATIONS Medications on admission had included: 1. Calcitriol 0.25 mcg p.o. daily. Unit #: [id number] #: [id number] Patient: TYLER HIGHTOWER 2. Aspirin 81 mg p.o. daily. 3. Iron gluconate 324 daily. 4. Albuterol and Atrovent mini nebs q.6. 5. Antacid three times a day. 6. Magnesium 400 mg b.i.d. 7. Flovent Diskus - there is no strength given. Two puffs b.i.d. 8. Symbicort 160/4.5, two puffs b.i.d. She really shouldn't be using the Flovent anyway. 9. Ranexa 500 mg p.o. q.12. 10. Bumex 1 mg p.o. b.i.d. 11. Tylenol p.r.n. 12. Lopressor 12.5 mg p.o. b.i.d. 13. Remeron 7.5 mg p.o. at bedtime. 14. Norvasc 10 mg p.o. at bedtime. 15. Atorvastatin 80 mg p.o. daily. 16. Plavix 75 mg p.o. daily. 17. Duloxetine 60 mg p.o. daily. 18. Rocephin 1 g daily. I am not sure if she was getting this. 19. Ondansetron 4 mg q.4 p.r.n. 20. Ventolin p.r.n. 21. Novolin R per sliding scale. ALLERGIES No known drug allergies. SOCIAL HISTORY She did smoke and apparently up until recently was still smoking a half pack a day. FAMILY HISTORY Unobtainable. PHYSICAL EXAMINATION GENERAL APPEARANCE: She presents as an older female in no acute distress. VITAL SIGNS: Temperature was 98.7, pulse of 58, respirations 13, blood pressure 133/55. Saturation is 96% on 2 L. NECK: Without adenopathy. She has a right Shiley just recently placed. The site looks good. LUNGS: Evaluation of her lungs reveals that her breathing is not labored. She has decreased breath sounds bilaterally. HEART: Mildly bradycardic. ABDOMEN: Soft. Bowel sounds are present. EXTREMITIES: Maybe trace edema at worst. NEUROLOGICAL: She is confused. She is picking at the blanket and acting like she is dropping something off. She isn't pulling out her line yet. When I ask her questions sometimes the answers, which are barely understandable anyway, seem a bit inappropriate for the question. She will intensive care unit registered nurse bilaterally. DIAGNOSTIC STUDIES IMAGING: Chest x-ray to my exam just reveals some increased interstitial markings. CAT scan to my exam reveals bilateral pleural effusions, both small, right just a little bit bigger than the left, and may be a little bit of right lower lobe atelectasis versus infiltrate. LABORATORY: White blood cell count on admission was 11. H and H 7 and Unit #: [id number] #: [id number] Patient: CAMPBELL,NELLIE 21. 250,000 platelets. Serum chemistry significant for a BUN of 61, creatinine 4.4. Potassium was elevated at 5.6. Calcium 7.9, total protein 5.6. AST elevated at 1058, ALT elevated at 628, ALP elevated at 323. Ammonia was only 35. BNP 2677, troponin 0.05. IMPRESSION 1. Hypoxemic respiratory failure, probably chronic: She is really not hypercapnic right now. 2. Chronic obstructive pulmonary disease in a patient who probably continued to smoke. 3. Confusion/delirium: I wonder if there is some chronicity to this as she was already on Remeron before this admission. 4. Chronic kidney disease, stage 4: Probably needing dialysis. 5. Elevated liver function tests, etiology uncertain. 6. Anemia. PLAN I think she probably ought to have a transfusion. She may need dialysis after receiving her transfusion and, in fact, I see that a transfusion has already been ordered. I see that there is a question of sepsis but her lactic acid was 1.2 which isn't that impressive. Before that, 1.8, which still isn't that impressive. However, given her confusion, certainly an infection is possible somewhere. Etiology of the infection is uncertain although it could be bladder even though her urinalysis isn't that impressive. I don't think it is lung unless it is empyema and she really isn't acting like that. I see that there are orders for the sepsis protocol and I also see that there are orders for antibiotics for sepsis protocol. I would probably just use cefepime. It is probably a moot point about nephrotoxic medications because I don't think she is going to do well whether we give her nephrotoxic medication or not. Therefore, I am fine certainly with a dose of vancomycin. Thank you very much for allowing me to participate in the care of this patient. Addendum - please note, she has COPD but she isn't hypercapnic and I don't think her breathing is the cause of her delirium. Dictated by... Javed Priest/barbie TD: 02/09/2017 07:30 JOB #: [id number] Unit #: [id number] #: [id number] Patient: TYLER HIGHTOWER CONSULTATION REPORT Page 1 of 1 X Raymond Aparicio MD X CONSULTATION REPORT
--- NOTE | ~2017-02-08 | CR72 ---
[facility] A Service of [facility] & [facility] RADIOLOGY TEXT RESULTS PATIENT: TYLER HIGHTOWER LOCATION: [facility] CICCU2-11 : 45 UNIT #: [id number] AGE: [address]: Soy Avalos MD SEX: F ORDER DR: [id number] [facility] [address] [facility] [place], [place] [address] [id number] I MR#: [id number] Acc #: [id number] NAME: TYLER HIGHTOWER : 1945 SEX: F STUDY DATE/TIME: 02/08/2017 16:05 UNIT: CEDOF ROOM: [id number] STUDY DESCRIPTION: CR Chest Single View Portable Attending Physician: Soy Avalos M.D. Ordering Physician: Niya Leal M.D. Primary Care Physician: Soy Avalos M.D. MEDICAL IMAGING REPORT This report is preliminary unless electronic signature is present EXAM Portable chest, 02/08 INDICATIONS Shortness of air with activity. Weakness. Mental status changes. Symptoms started yesterday. FINDINGS AP portable chest is compared with 02/04/2017. Cardiomegaly is stable. New right side central venous catheter has its tip at the right atrial level. There is new mild infiltrate right [id number] lung and there is a small volume of right pleural fluid. Left lung clear. No pneumothorax. Dictated by... Munir Castillo Jr., M.D. THIS IS AN ELECTRONICALLY VERIFIED REPORT Munir Castillo Jr., M.D. at 02/09/2017 5:58 AM LLOYD/kerry TD: 02/08/2017 20:20 JOB #: [id number] MEDICAL IMAGING REPORT Page 1 of 1 COPY
--- NOTE | ~2017-02-08 | CT71 ---
[facility] A Service [facility] RADIOLOGY TEXT RESULTS PATIENT: TYLER HIGHTOWER LOCATION: [facility] : 45 UNIT #: [id number] AGE: [address]: Soy Avalos MD SEX: F ORDER DR: [id number] [address] [address] [id number] E MR#: [id number] Acc #: [id number] NAME: TYLER HIGHTOWER : 1945 SEX: F STUDY DATE/TIME: 02/08/2017 13:03 UNIT: PB ROOM: STUDY DESCRIPTION: CT Head Wo Contrast Attending Physician: Niya Leal M.D. Ordering Physician: Niya Leal M.D. Primary Care Physician: Soy Avalos M.D. MEDICAL IMAGING REPORT This report is preliminary unless electronic signature is present EXAM Head CT no contrast 02/08/2017 PROCEDURE Axial unenhanced head CT. This CT exam was performed with one or more of the following radiation dose reduction techniques: automatic exposure control, adjustment of mA and/or kV according to patient size, and iterative reconstruction. HISTORY Agitation and confusion since yesterday. COMPARISON STUDIES Prior head CT 08/15/2016 FINDINGS There is no intracranial hemorrhage or mass. There is volume loss and small vessel type nonspecific white matter change including in the mid brain and brain stem but no evidence is seen at any acute intracranial abnormality. The extracranial soft tissues and skull base and calvarium are also unremarkable. IMPRESSION Volume loss and small vessel change. No acute abnormality. No convincing interval change since the head CT of 08/15/2016. Dictated by... Peter Denney M.D. [facility] A Service [facility] RADIOLOGY TEXT RESULTS PATIENT: TYLER HIGHTOWER LOCATION: [facility] 322 : 45 UNIT #: [id number] AGE: [address]: Soy Avalos MD SEX: F ORDER DR: THIS IS AN ELECTRONICALLY VERIFIED REPORT Peter Denney M.D. at 02/14/2017 10:35 AM KYRIE/reese TD: 02/08/2017 15:24 JOB #: [id number] MEDICAL IMAGING REPORT Page 1 of 1 COPY
--- NOTE | ~2017-02-08 | CR72 ---
[facility] A Service of [facility] & [facility] RADIOLOGY TEXT RESULTS PATIENT: TYLER HIGHTOWER LOCATION: [facility] - : 45 UNIT #: [id number] AGE: [address]: Soy Avalos MD SEX: F ORDER DR: [id number] [facility] [address] [facility]. [place], [place] [address] [id number] I MR#: [id number] Acc #: [id number] NAME: TYLER HIGHTOWER : 1945 SEX: F STUDY DATE/TIME: 02/14/2017 5:58 UNIT: [address] ROOM: [facility] STUDY DESCRIPTION: CR Chest Single View Portable Attending Physician: Soy Avalos M.D. Ordering Physician: Raymond Aparicio M.D. Primary Care Physician: Soy Avalos M.D. MEDICAL IMAGING REPORT This report is preliminary unless electronic signature is present EXAM Single view chest INDICATION Shortness of air. Respiratory failure. FINDINGS Single portable AP view of the chest compared to 02/12/2017. Right IJ central line remains in place. The enteric tube has been removed. Right basilar airspace opacity and pleural effusion are fairly similar to the prior study. There is some improving aeration in the left lung base. No pneumothorax. IMPRESSION 1. Improving aeration in the left lung base. 2. Persistent right basilar airspace opacity/pleural effusion. Dictated by... Milton Campa M.D. THIS IS AN ELECTRONICALLY VERIFIED REPORT Milton Campa M.D. at 02/14/2017 8:02 AM DULCE MARIA/evi TD: 02/14/2017 07:20 JOB #: [id number] MEDICAL IMAGING REPORT Page 1 of 1 COPY
--- NOTE | ~2017-02-08 | DS ---
Unit #: [id number] #: [id number] Patient: TYLER HIGHTOWER [id number] [address] [place], [place] [address] [id number] I MR#: [id number] NAME: TYLER HIGHTOWER ROOM: [facility] Age: 71 Sex: F Admission Date: 02/08/2017 : 1945 Discharge Date: Attending Physician: Soy Avalos M.D. Primary Care Physician: Soy Avalos M.D. DISCHARGE SUMMARY ADDENDUM TO THE DISCHARGE SUMMARY The patient was originally supposed to go to the SNU, her Loomis catheter was ordered to be discontinued at 6:00 a.m. It was not discontinued until later in the evening. She had trouble voiding, had a bladder scanner of 152 mL, meanwhile, cardiology saw the patient and ordered a BNP that was quite elevated and was not addressed until the following day. They contacted nephrology who placed the patient back on Bumex. No other significant changes were made and the patient is being discharged today. She is on a regular healthy heart constant carb diet. Her medications are the same except for the addition of Bumex 2 mg twice daily for two days, then 2 mg daily thereafter. The patient needs to have a CBC and BNP in the morning, and a BNP daily for the next few days to assure electrolyte and renal function stability. Dictated by... Javed Lynch/ramone TD: 02/17/2017 09:53 JOB #: [id number] DISCHARGE SUMMARY Page 1 of 1 X Soy Avalos MD X DISCHARGE SUMMARY
--- NOTE | ~2017-02-08 | CR7 ---
[facility] A Service of [facility] & [facility] RADIOLOGY TEXT RESULTS PATIENT: TYLER HIGHTOWER LOCATION: [address] : [birth year] UNIT #: [id number] AGE: [address]: Soy Avalos MD SEX: F ORDER DR: [id number] [facility] [address] [facility] [place] [facility]. [place], [place] [address] [id number] I MR#: [id number] Acc #: [id number] NAME: TYLER HIGHTOWER : 1945 SEX: F STUDY DATE/TIME: 02/09/2017 16:51 UNIT: [facility] ROOM: [facility] STUDY DESCRIPTION: CR Abdomen Single AP View Attending Physician: Soy Avalos M.D. Ordering Physician: Soy Avalos M.D. Primary Care Physician: Soy Avalos M.D. MEDICAL IMAGING REPORT This report is preliminary unless electronic signature is present EXAM Portable abdomen HISTORY Dobbhoff tube placement. FINDINGS Portable radiograph of the abdomen for Dobbhoff tube placement demonstrates feeding tube tip is in the left upper quadrant at the level of the mid gastric body 14 cm beyond the EG junction. The tube has been advanced since chest x-ray at 16:49 hours. Mild bibasilar atelectasis. Visualized bowel gas pattern is normal. The exam does not include the mid and lower pelvis. Dictated by... Rayshawn Palmer M.D. THIS IS AN ELECTRONICALLY VERIFIED REPORT Rayshawn Palmer M.D. at 02/10/2017 2:43 PM CARLOS/krzysztof TD: 02/10/2017 00:52 JOB #: [id number] MEDICAL IMAGING REPORT Page 1 of 1 COPY
--- NOTE | ~2017-02-08 | EE ---
Unit #: [id number] #: [id number] Patient: TYLER HIGHTOWER [id number] [address] [address] [id number] I MR#: [id number] NAME: TYLER HIGHTOWER : 1945 SEX: F STUDY DATE/TIME: 02/12/2017 UNIT: C3A PCU ROOM: [address] [place] [address] DESCRIPTION: EEG Attending Physician: Soy Avalos M.D. Referring Physician: Soy Avalos M.D. Primary Care Physician: Soy Avalos M.D. NEURODIAGNOSTICS REPORT PROCEDURE PERFORMED EEG. REASON FOR STUDY Mental status changes. EEG DESCRIPTION This is an inpatient, portable, digitally recorded, multi-montage, adult EEG with leads placed according to the International 10-20 system. Hyperventilation was not done, but photic stimulation was attempted. PROCEDURE REPORT This EEG shows 5-6 Hz diffuse background slowing. The patient did become drowsy, and later on stage II sleep was seen. Nothing suggesting seizure. Nothing suggesting status. No interictal discharges. An EEG like this does not rule out epilepsy. Clinical course is recommended. Dictated by... Javed Ruby/frankie TD: 02/13/2017 08:35 JOB #: [id number] NEURODIAGNOSTICS REPORT Page 1 of 1 X Staci Portillo MD NEURODIAGNOSTICS REPORT
--- NOTE | ~2017-02-08 | XA75 ---
[facility] A Service of [facility] & [facility] RADIOLOGY TEXT RESULTS PATIENT: TYLER HIGHTOWER LOCATION: [address] : [birth year] UNIT #: [id number] AGE: [address]: Soy Avalos MD SEX: F ORDER DR: [id number] [facility] [address] [facility]. [place], [place] [address] [id number] I MR#: [id number] Acc #: [id number] NAME: TYLER HIGHTOWER : 1945 SEX: F STUDY DATE/TIME: 02/08/2017 14:31 [facility] STUDY DESCRIPTION: XA CVC Non-Tunnel Attending Physician: Soy Avalos M.D. Ordering Physician: Toan Prieto M.D. Primary Care Physician: Soy Avalos M.D. MEDICAL IMAGING REPORT This report is preliminary unless electronic signature is present EXAM Non-tunneled dialysis catheter placement. INDICATION Need for access for dialysis in a patient with acute renal failure. Bilateral effusions identified on CT of the chest performed February 08, 2017. TECHNIQUE The procedure was explained to the patient's customer service representative, including risks, benefits, potential complications and potential for alternative forms of treatment. Informed consent was obtained, and prior to initiating the procedure, formal time-out procedure was performed. Using all elements of maximal sterile barrier technique, including hand hygiene, caps, sterile gowns, gloves, and masks, the right neck was prepped with 2% Chlorhexidine for cutaneous antisepsis and covered with a large sterile sheet. The ultrasound probe was covered with a sterile probe cover, and sterile gel was applied. Real-time sterile ultrasound guidance was used to localize the right internal jugular vein, which was found be patent and compressible. Hard copy ultrasound image was obtained after local anesthesia with 1% Xylocaine, and the vein was punctured using real-time sterile ultrasound guidance, and a 0.018 guidewire was advanced into the superior vena cava under fluoroscopic guidance. A micropuncture sheath was placed, and an Amplatz wire was advanced into the inferior vena cava. Track was serially dilated and a new, non- tunneled dialysis catheter was advanced over the wire and positioned within the right atrium. Following placement the catheter flushed and aspirated easily and was secured using 2 2-0 silk sutures. Total fluoroscopy time was 0.1 minutes. AK was 2 mGy. Position was confirmed with a radiographic image. [facility] A Service of [facility] RADIOLOGY TEXT RESULTS PATIENT: TYLER HIGHTOWER LOCATION: [facility]2-11 : [birth year] UNIT #: [id number] AGE: [address]: Soy Avalos MD SEX: F ORDER DR: IMPRESSION Successful placement of a right internal jugular vein non-tunneled dialysis catheter that terminates within the right atrium. This catheter is ready for immediate use. Ultrasound and fluoroscopy were used in placement of the catheter, and permanent images were saved. Dictated by... Danielle Mackay M.D. THIS IS AN ELECTRONICALLY VERIFIED REPORT Danielle Mackay M.D. at 02/09/2017 5:12 PM LORENZO/tra TD: 02/09/2017 11:39 JOB #: [id number] MEDICAL IMAGING REPORT Page 1 of 1 COPY
--- NOTE | ~2017-02-08 | CO ---
Unit #: [id number] #: [id number] Patient: TYLER HIGHTOWER [id number] [address] [place], [place] [address] [id number] I MR#: [id number] NAME: TYLER HIGHTOWER ROOM: [facility] Age: 71 Sex: F Admission Date: 02/08/2017 : 1945 Attending Physician: Soy Avalso M.D. Primary Care Physician: Soy Avalos M.D. CONSULTATION REPORT REASON FOR CONSULTATION Congestive heart failure. HISTORY OF PRESENT ILLNESS This is a 71-year-old white female, who is known to Dr. Velazquez, who has a history of multivessel disease that has been treated medically. She is known to have hypertension, hyperlipidemia, diabetes, and chronic systolic heart failure where her ejection fraction per echocardiogram in 12/2016 was 40 to 45%. The patient was recently discharged from [facility] on 01/28/2017, where she was admitted with hip fracture. She underwent repair. During the course of her stay, the patient was noted to have some confusion. Preoperatively, she was seen by Dr. Jose Ireland for preoperative clearance. Echocardiogram at that time showed her to have improved ejection fraction of 52%. After discharge, the patient was admitted to the [facility] at this facility. The patient was noted to be more confused. She had altered mental status and weakness and was sent to the emergency room for evaluation. In the emergency room, she was found to be hypokalemic with potassium level of 6.0 and a creatinine of 4.6. She has undergone hemodialysis. She was subsequently admitted to the intensive care unit. She is confused and is unable to provide a history. Most information has been obtained from previous records, the chart, and the daughter who is at bedside. According to the daughter, she is unaware of any significant shortness of breath. She did note confusion. There was no report of chest pain. She was anemic with hemoglobin of 7.0, where she received a unit of packed red blood cells. She has also been febrile, but blood cultures are currently pending. BNP was obtained which was elevated at 2677. Chest x-ray showed no heart failure. CT of the abdomen and pelvis denoted findings consistent with atelectasis or pneumonia. Also had marked body wall edema, it was greater on the right side. She had elevated LFTs. For this reason, Cardiology was consulted for evaluation. The patient was discharged home from [facility] [address]. She had a chest x-ray done while in rehab that was noted for pulmonary vascular congestion and mild interstitial edema. She was started on Lasix 40 mg b.i.d. for 3 days. PAST MEDICAL HISTORY 1. 2D echocardiogram on 01/22/2017 at [facility] shows an ejection fraction of 52% with normal valves. 2. Cardiac catheterization on 11/25/2014 showed an ejection fraction of 35%. Left main normal. Circumflex artery 50% at its origin. The LAD at the junction of the proximal two-third and distal one-third 75%. Second Unit #: [id number] #: [id number] Patient: CAMPBELL,NELLIE diagonal branch 99%. Right coronary artery 100% proximal. PDA and PLV branches fill retrograde left or right collaterals. Pulmonary artery pressure 52/15 with mean of 31. Pulmonary capillary wedge pressure A-wave 16, V-wave 16 with mean of 15. 3. Chronic systolic heart failure. 4. Hypertension. 5. Hyperlipidemia. 6. Diabetes mellitus, type 2. 7. 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 8. COPD. 9. GERD. 10. Chronic kidney disease, stage 4. 11. Former smoker. PAST SURGICAL HISTORY 1. Cholecystectomy. 2. Right foot surgery for clubfoot. 3. Bilateral cataract extraction. 4. Tubal ligation. 5. ERCP. 6. Left foot toe amputation. 7. Right foot toe amputation. 8. Right lower extremity bypass. SOCIAL HISTORY The patient is . She has a remote history of nicotine abuse where she smoked one pack of cigarettes a day for 50 years. Quit smoking in 2014. There are no report of illicit drug or alcohol use. FAMILY HISTORY Noncontributory. ALLERGIES No known drug allergies. HOME MEDICATIONS Calcitriol 0.25 mcg daily, aspirin 81 mg daily, ferrous gluconate 324 mg daily, Combivent mini nebs q.6 hours, sodium bicarbonate 650 mg t.i.d., magnesium 400 mg b.i.d., Flovent 2 puffs b.i.d., Symbicort 160/4.5 mcg 2 puffs b.i.d., Ranexa 500 mg b.i.d., Bumex 1 mg b.i.d., acetaminophen 1000 mg b.i.d., metoprolol tartrate 12.5 mg b.i.d., Remeron 7.5 mg q.h.s., Norvasc 10 mg q.h.s., atorvastatin 80 mg daily, Plavix 75 mg q.h.s., duloxetine 60 mg daily, Rocephin 1 g daily, Zofran 4 mg q.4 hours p.r.n., albuterol 2 puffs q.4 hours p.r.n., and Novolin R per sliding scale. REVIEW OF SYSTEMS Unable to obtain, because of the patient's mental status. PHYSICAL EXAMINATION VITAL SIGNS: Blood pressure is 162/71, heart rate 78, temperature 99.5. GENERAL: This is a 71-year-old white female, who is in no acute respiratory distress. NEUROLOGIC: Her eyes are open, but she mumbles. Moving all extremities. There are no obvious focal weaknesses. NECK: Trachea is midline. No thyromegaly or lymphadenopathy. No jugular venous distention. HEART: S1 and S2. Heart sounds are normal. No murmurs. No rubs or Unit #: [id number] #: [id number] Patient: CAMPBELL,NELLIE clicks. Regular rate and rhythm. LUNGS: Clear without rales, rhonchi, or wheezing. ABDOMEN: Soft and nontender with bowel sounds are present. No hepatomegaly. EXTREMITIES: With trace lower extremity edema. DIAGNOSTIC STUDIES LABORATORY RESULTS: Glucose 64, BUN 38, creatinine 3.2, sodium 139, potassium 3.7, magnesium 3.3. BNP 2677. Troponin less than 0.05. White count 10.0, hemoglobin 8.9, hematocrit is 26.9, platelet count is 218. IMAGING STUDIES: Chest x-ray shows new mild infiltrate in the right middle lobe. CARDIOVASCULAR STUDIES: EKG shows sinus bradycardia with a rate of 55 beats per minute, otherwise normal. IMPRESSION 1. Altered mental status. 2. Acute respiratory failure. 3. Elevated LFTs, questionable etiology. 4. Severe anemia. 5. Hypertension. 6. Moderate three-vessel coronary artery disease per cardiac catheterization in 2014. 7. Acute on chronic systolic heart failure with an ejection fraction of 40% to 45% improved to 52% per echocardiogram in 01/2017. 8. Chronic obstructive pulmonary disease. 9. End-stage renal disease, on hemodialysis. PLAN 1. Cardiology was consulted for congestive heart failure. The patient had improvement of her ejection fraction to 52% per last echocardiogram on 01/22/2017. BNP is elevated. She had dialysis already today. We will continue fluid removal with hemodialysis as per Renal. 2. We will repeat troponin and EKG to rule out FL. 3. Blood cultures have been obtained. We will await results to rule out sepsis. 4. Thyroid functions will be checked. 5. Plan has been discussed with at the bedside. Thank you for allowing us to assist with this patient's care. Dictated by... Holly Chacko/ellis TD: 02/12/2017 05:03 JOB #: [id number] CC: Luis Velazquez M.D. Unit #: [id number] #: [id number] Patient: TYLER HIGHTOWER CONSULTATION REPORT Page 1 of 1 X Florin Patel APRN X CONSULTATION REPORT
--- NOTE | ~2017-02-08 | FU ---
[facility] Nutrition Therapy DATE: 02/13/17 Patient: TYLER HIGHTOWER Physician: RACHELE Address: [address] Room/Bed: [address] [place] [address], Zip: [place] [address] Admit Date: 02/08/17 Date of : [birth year] Height: 5 4 Weight: 176 80.28 NUTRITION MONITORING/FOLLOW-UP: Reason: PT SEEN FOR FOLLOW-UP DX: AMS, CHESTER, RESP FAILURE Anthropometrics: 5'4", WT: 176# (80 KG), BMI: 30.2 -WEIGHTS HAVE BEEN STABLE SINCE ADMIT Labs: GLU: 148, BUN: 36, CREAT: 2.5, CA+:8.2, ALB: 2.4, AST: 45, ALT: 135, GFR: 18.7 Meds: REGLAN, ZOFRAN, LACTULOSE, NOVOLOG I&O's: 60/250 Skin: BLE TRACE EDEMA, BILATERAL HEELS PRESSURE ULCER NOTED Estimated Nutrition Needs: [phone] KCAL 87-109 G PRO Assessment: CHART REVIEWED AND EVENTS NOTED. PT SEEN FOR FOLLOW-UP. PT CONFUSED, SLEEPY AND DISORIENTED AT TIME OF VISIT. PT UNABLE TO CONDUCT DIET INTERVIEW AT THIS TIME. PER RN AND CHART, PT NOTED TO HAVE FAIR PO INTAKE AND APPETITE, NOTING CONSUMING ~10-40% OF MEALS. PT NOT APPROPRIATE FOR DIET EDUCATION AT THIS TIME, RD TO CONTINUE TO FOLLOW. 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 Intervention: 1. CC+HH DIET Monitoring, Evaluation and Goals: 1. ENTERAL NUTRITION; PROVIDE >80% TOTAL VOLUME X 24 HOURS-UNMEASURED 2. ORAL INTAKE; CONSUME >80% OF MEALS W/NO C/O N/V/D 3. WEIGHTS; PROMOTE GRADUAL WEIGHT LOSS-NOT MET 4. LABS; WNL-IN PROGRESS 5. GI; PROMOTE REGULAR GI FUNCTION-IN PROGRESS MONITOR: -PO INTAKE/APPETITE -WEIGHTS -SUPPLEMENT INTAKE Recommendations: [facility] Nutrition Therapy DATE: 02/13/17 Patient: TYLER HIGHTOWER Physician: RACHELE Address: [address] [facility] Room/Bed: [address] [place] [address], Zip: [place] [address] Admit Date: 02/08/17 Date of : [birth year] Height: 5 4 Weight: 176 80.28 1. CONTINUE TO ENCOURAGE ADEQUATE PO INTAKE. ASSIST W/ORDERING MEALS AND PO INTAKE NEEDED 2. IF PO INTAKE <50%, CONSIDER ORDERING APPROPRIATE SUPPLEMENTS (GLUCERNA SHAKES, ENSURE PUDDING) RD WILL F/U PER PROTOCOL PT IS MILD/MODERATELY COMPROMISED Respectfully, PENNIE RENAE MS, RD, LD [facility] cc: client file
--- NOTE | ~2017-02-08 | CR72 ---
[facility] A Service of [facility] & [facility] RADIOLOGY TEXT RESULTS PATIENT: TYLER HIGHTOWER LOCATION: [address] : [birth year] UNIT #: [id number] AGE: [address]: Soy Avalos MD SEX: F ORDER DR: [id number] [facility] [address] [facility]. [place], [place] [address] [id number] I MR#: [id number] Acc #: [id number] NAME: TYLER HIGHTOWER : 1945 SEX: F STUDY DATE/TIME: 02/09/2017 16:49 UNIT: [facility] ROOM: [facility] STUDY DESCRIPTION: CR Chest Single View Portable Attending Physician: Soy Avalos M.D. Ordering Physician: Soy Avalos M.D. Primary Care Physician: Soy Avalos M.D. MEDICAL IMAGING REPORT This report is preliminary unless electronic signature is present EXAM Portable chest HISTORY Dobbhoff tube placement. Shortness of air and weakness. Unable to eat. FINDINGS Feeding tube tip is in the midline lower mediastinum at the level of the distal esophagus 3 cm above the EG junction. Right IJ catheter tip is in the right atrium 6 cm beyond the junction of the SVC and right atrium. Mild patchy bibasilar infiltrates or atelectasis have developed or increased compared to yesterday. Dictated by... Rayshawn Palmer M.D. THIS IS AN ELECTRONICALLY VERIFIED REPORT Rayshawn Palmer M.D. at 02/10/2017 2:43 PM DFL/amayar TD: 02/10/2017 00:50 JOB #: [id number] MEDICAL IMAGING REPORT Page 1 of 1 COPY
--- NOTE | ~2017-02-08 | CT57 ---
[facility] A Service of [facility] RADIOLOGY TEXT RESULTS PATIENT: TYLER HIGHTOWER LOCATION: [facility] : [birth year] UNIT #: [id number] AGE: [address]: Niya Leal MD SEX: F ORDER DR: [id number] [facility] [address] [place], [place] [address] [id number] E MR#: [id number] [facility] #: [id number] NAME: TYLER HIGHTOWER : 1945 SEX: F STUDY DATE/TIME: 02/08/2017 13:05 UNIT: [facility] ROOM: STUDY DESCRIPTION: CT Chest Wo Cont Attending Physician: Niya Leal M.D. Ordering Physician: Niya Leal M.D. Primary Care Physician: Soy Avalos M.D. MEDICAL IMAGING REPORT This report is preliminary unless electronic signature is present EXAM CT chest without contrast. INDICATIONS Agitation, confusion, lethargy and weakness with abnormal labs beginning yesterday. Patient was sent from [facility] for further evaluation. COMPARISON 06/18/2015 TECHNIQUE Axial 5 mm images were obtained through the chest without IV contrast. This CT exam was performed with one or more of the following radiation dose reduction techniques: automatic exposure control, adjustment of mA and/or kV according to patient size, and iterative reconstruction. FINDINGS There are moderate, right greater than left effusions with bibasilar atelectasis. The right thyroid lobe is enlarged, and unchanged from 06/18/2015. There is a possible nodule in the inferior right thyroid lobe measuring 3.6 x 2.2 cm, that is stable. There is no mediastinal or hilar adenopathy. The aorta is normal in size. The visualized portions of the upper abdomen are normal. The upper lobes are clear. IMPRESSION 1. Stable right thyroid mass, unchanged from 06/18/2015. 2. Right greater than left moderate effusions with bibasilar atelectasis. 3. Otherwise, normal. [facility] A Service of [facility] RADIOLOGY TEXT RESULTS PATIENT: TYLER HIGHTOWER LOCATION: [facility] : 45 UNIT #: [id number] AGE: [address]: Niya Leal MD SEX: F ORDER DR: Dictated by... Caleb Barros M.D. THIS IS AN ELECTRONICALLY VERIFIED REPORT Caleb Barros M.D. at 02/08/2017 4:30 PM FREDDY/benedict TD: 02/08/2017 15:28 JOB #: [id number] MEDICAL IMAGING REPORT Page 1 of 1 COPY
--- NOTE | ~2017-02-08 | CR72 ---
[facility] A Service of [facility] & [facility] RADIOLOGY TEXT RESULTS PATIENT: TYLER HIGHOTWER LOCATION: [place] [address]-11 : [birth year] UNIT #: [id number] AGE: [address]: Soy Avalos MD SEX: F ORDER DR: [id number] [facility] [address] [facility]. [place], [place] [address] [id number] I MR#: [id number] Acc #: [id number] NAME: TYLER HIGHTOWER : 1945 SEX: F STUDY DATE/TIME: 02/11/2017 4:49 UNIT: [facility] ROOM: [facility] STUDY DESCRIPTION: CR Chest Single View Portable Attending Physician: Soy Avalos M.D. Ordering Physician: Raymond Aparicio M.D. Primary Care Physician: Soy Avalos M.D. MEDICAL IMAGING REPORT This report is preliminary unless electronic signature is present EXAM Portable chest HISTORY Followup infiltrates. FINDINGS This portable view of the chest shows low lung volumes with left greater than right basilar atelectasis or infiltrate. There has been no change. The central venous catheter has its tip in the right atrium. Heart size is normal. Dictated by... Caleb Barros M.D. THIS IS AN ELECTRONICALLY VERIFIED REPORT Caleb Barros M.D. at 02/12/2017 1:37 PM FREDDY/reina TD: 02/12/2017 05:30 JOB #: [id number] MEDICAL IMAGING REPORT Page 1 of 1 COPY
--- NOTE | ~2017-02-08 | DS ---
Unit #: [id number] #: [id number] Patient: TYLER HIGHTOWER [id number] [address] [address] [id number] I MR#: [id number] NAME: TYLER HIGHTOWER ROOM: 322 Age: 71 Sex: F Admission Date: 02/08/2017 : 1945 Discharge Date: 02/15/2017 Attending Physician: Soy Avalos M.D. Primary Care Physician: Soy Avalos M.D. DISCHARGE SUMMARY DISPOSITION Patient is being transferred to prison unit. PRINCIPAL DISCHARGE DIAGNOSES 1. Acute delirium secondary to metabolic abnormalities, multiple. 2. Acute liver failure. 3. Acute on chronic kidney disease requiring hemodialysis. 4. Hyperkalemia. 5. Hypermagnesemia. 6. Hyperphosphatemia. 7. Anemia. 8. Chronic systolic congestive heart failure. 9. Coronary artery disease. 10. Peripheral arterial disease. 11. Hypertension. 12. Type 2 diabetes mellitus. 13. Hyperlipidemia. 14. Known benign right thyroid nodule. 15. Bilateral pleural effusions. 16. Recent open reduction and internal fixation right hip fracture. PROCEDURES 1. Shiley catheter placement February 08, 2017. 2. Hemodialysis on February 08 and February 09, 2017. 3. Transfusion of one unit packed RBCs on February 08, 2017. CONSULTANTS 1. Dr. Raymond Aparicio 2. Dr. Toan Prieto 3. Dr. Alvarez Avendaño 4. Dr. Portillo 5. Dr. Velazquez REASON FOR HOSPITALIZATION The patient is a 71-year-old white female with a history of COPD, coronary artery disease, severe left ventricular dysfunction, chronic systolic CHF, chronic kidney disease stage 4, hypertension, hyperlipidemia, type 2 diabetes mellitus, and recent fall with fracture of the right hip, who was sent to [place] and had open reduction and internal fixation, then she was transferred to the prison unit for rehab where she had been for about four days when she developed worsening renal function, hyperkalemia, anemia, and acute mental status changes. She was sent to the emergency room and found to have multiple abnormal labs including markedly elevated liver function test and acute on chronic kidney disease associated with Unit #: [id number] #: [id number] Patient: CAMPBELL,NELLIE hyperkalemia and anemia requiring transfusion. In the ER, she was afebrile. Her O2 saturation was 95% on two liters. The rest of her vital signs were stable. Lactic acid was normal, cardiac enzymes normal, and ammonia level was normal. White count was 11 and hemoglobin 7. Potassium 5.6, BUN 61, creatinine 4.4, and GFR 9.8. BNP 2677. CT scan of the head showed no active disease. CT scan of the chest showed stable right thyroid nodule and right greater than left bilateral pleural effusions. CT scan of the abdomen and pelvis showed anasarca with some periportal edema but no active disease. EKG showed a sinus bradycardia at 55 beats per minute with nonspecific ST abnormality, and the patient was admitted. HOSPITAL COURSE The patient was seen by Dr. Prieto from Nephrology and underwent Shiley catheter placement and emergent hemodialysis on the . She was transfused one unit of packed RBCs as well on the . She was placed in the ICU on broad spectrum antibiotics for possible sepsis. Accu-Cheks were obtained a.c. and at bedtime with low-dose sliding scale insulin and Lovenox for DVT prophylaxis. The patient slowly mentally improved over the next few days. She was seen in consultation by Neurology. Repeat CT scan showed no changes and no active disease. Ammonia levels were repeated and within normal limits. EEG showed some nonspecific slowing but no seizure activity. Once the patient's mental status improved, her diet was slowly but surely advanced after swallow evaluation by Speech Pathology. She had an additional hemodialysis on February 09, 2017. A Dobbhoff tube was placed originally for supportive care and nutritional sake. She was slowly started back on some of her home medicines, although she is on multiple less than she was prior to this admission. She was given IV iron by Nephrology. She was transferred out of the ICU on the to a monitored bed. She developed some nausea and vomiting when she was placed back on a regular diet and treated with p.r.n. Zofran and Reglan. Her [place]is and Shiley catheters were discontinued today. Her labs this morning showed a BUN of 36, creatinine 2.4, GFR 19, ALT 77, alkaline phosphatase, potassium 3.8, magnesium 2.2, and phosphorus 2.6. White count 7.4, hemoglobin 8.2, and platelets 143,000. Her O2 saturations are 99% on two liters. She is being discharged to the prison unit on a healthy heart, constant carbohydrate diet. CURRENT MEDICATIONS 1. Combivent unit dose mini-nebs 4 times daily. 2. Pulmicort 0.5 mg per nebulizer q.12 hours. 3. Perforomist 15 mcg per nebulizer q.12 hours. 4. Zofran 4 mg IV q.6 p.r.n. for nausea or vomiting. 5. Lopressor 25 mg p.o. b.i.d. 6. Omnicef 300 mg daily for an additional 3 days. 7. Lipitor 40 mg p.o. at bedtime. 8. Hydralazine 25 mg p.o. q.8 hours. 9. Low-dose NovoLog sliding scale insulin a.c. and at bedtime. 10. Aspirin 81 mg daily. 11. Reglan 5 mg p.o. 4 times daily p.r.n. for nausea or vomiting. 12. Plavix 75 mg p.o. daily. Unit #: [id number] #: [id number] Patient: TYLER HIGHTOWER DISCHARGE INSTRUCTIONS She will need to have a followup CBC and BMP over the next few days to insure stability of her labs. Dictated by... Javed Lynch/ramone TD: 02/15/2017 17:57 JOB #: [id number] DISCHARGE SUMMARY Page 1 of 1 X Soy Avalos MD X DISCHARGE SUMMARY
--- NOTE | ~2017-02-08 | CO ---
Unit #: [id number] #: [id number] Patient: TYLER HIGHTOWER [id number] [facility] [address] [place], [place] [address] [id number] I MR#: [id number] NAME: TYLER HIGHTOWER ROOM: 322 Age: 71 Sex: F Admission Date: 02/08/2017 : 1945 Attending Physician: Soy Avalos M.D. Primary Care Physician: Soy Avalos M.D. Consultation Date: 02/11/2017 CONSULTATION REPORT PRIMARY CARE PHYSICIAN Soy Avalos M.D. REASON FOR CONSULTATION Worsening mental status. PATIENT IDENTIFICATION This is a 71-year-old right-handed female, evaluated in ICU room 11 at [facility]. SOURCE OF INFORMATION Obtained from the patient's , the patient, as well as medical record. HISTORY OF PRESENT ILLNESS This is a 71-year-old right-handed female with past medical history of CAD, peripheral arterial disease, CHF, hypertension, hyperlipidemia, chronic kidney disease, diabetes mellitus type 2, who presents to [facility] with mental status changes and delirium. She was transferred from [facility] after undergoing open reduction and internal fixation of her right hip in [facility] after recent fall and right hip fracture. She was at the assisted unit. Initial rehab for few days. She was sent to the assisted unit at [facility] and over the past few days prior to coming to [facility] ER, she was having gradual worsening of her mental status, worsening renal function, hyperkalemia, anemia, and given her acute mental status changes and delirium, she was sent to the ER for further evaluation. She was found to have abnormal lab work, worsening kidney function, was set up for dialysis. Catheter was placed by Interventional Radiology. She was also admitted for treatment for acute liver failure. Pulmonology was asked to see for hypoxemic respiratory failure likely chronic and COPD in a patient who continues to smoke. Apparently, she has had been exhibiting some delirium throughout her hospital stay, but it has gotten progressively better though she has been sleeping well at night. I spoke with the at the bedside and again he states the patient has had some improvement in her mental status, but has had some lethargy more so last night. There has been no report of syncope, seizure, headache, new fever, neck pain, speech changes, new stroke symptoms, any vision changes. Neurology was asked to see if she had worsening lethargy through the night and this morning and the concern is she was doing better already yesterday. On exam, the patient is sleeping, but easily arousable. She can name and identify and follow simple commands. Her speech is intact. She has no aphasia. She is oriented x2. She can tell me the month and she recognizes her . Unit #: [id number] #: [id number] Patient: TYLER HIGHTOWER She denies any headache or pain. She has no cranial nerve findings on exam. She had an initial head CT when she came over, which was negative for any acute findings and a repeat head CT is negative for any acute findings. She does have a quite a bit amount of atrophy. PAST MEDICAL HISTORY 1. CAD. 2. Peripheral arterial disease. 3. Chronic systolic CHF. 4. Severe left ventricular dysfunction. 5. Hypertension. 6. Hyperlipidemia. 7. Anemia. 8. Chronic kidney disease, stage 4. 9. Type 2 diabetes mellitus. 10. Right thyroid nodule benign by biopsy. 11. Depression. 12. Cholecystectomy. 13. Bilateral transmetatarsal amputations. 14. Tubal ligation. 15. ERCP for bile duct stone. 16. Open reduction and internal fixation of right hip fracture recently, please see above. 17. Gastroparesis. 18. Glaucoma. ALLERGIES No known drug allergies. MEDICATIONS PRIOR TO ADMISSION Include calcitriol, aspirin, ferrous gluconate, DuoNeb, sodium bicarbonate, magnesium, Symbicort, Ranexa, Bumex, Tylenol, Lopressor, Remeron, Norvasc, Lipitor, Plavix, Cymbalta, Rocephin, Zofran, Novolin R insulin. FAMILY HISTORY Noncontributory to the presenting condition. SOCIAL HISTORY She smokes one pack per day. She has no alcohol use or illicit drug use. She is and lives with her . REVIEW OF SYSTEMS 14-point review of systems attempted with the patient and also with the at the bedside as the patient is lethargic. Pertinent positives are as discussed above, otherwise negative. PHYSICAL EXAMINATION VITAL SIGNS: Temperature 99.4, pulse 90, respirations 22, oxygen saturation 90%, blood pressure 152/47, oxygen saturation again 90%, height 5 feet 4 inches. Weight 165 pounds. NEUROLOGIC: The patient is lethargic, but easily arousable. She is oriented to person and place. She recognizes her at bedside. She has no right or left confusion. No finger agnosia. Speech is fully intact. She can name and identify. No aphasia or apraxia. Cranial nerve exam, she demonstrates full mart of vision. Eyes are conjugate without ptosis or nystagmus. Extraocular movements are intact. Sensation of face and scalp is intact. Strength of muscles of facial expression is intact. Unit #: [id number] #: [id number] Patient: CAMPBELL,NELLIE Hearing is intact to finger rub and conversation. Tongue is midline. Uvula is midline. Palate elevation is normal. Head turning and shoulder shrug are unremarkable. Neck is supple. Motor exam, she demonstrates normal bulk and tone. Strength is equal 5/5 in all extremities. Sensory exam is intact. Gait and Romberg deferred. Reflexes, unable to elicit. Coordination, no past-pointing seen. Normal [id number]. DIAGNOSTIC STUDIES IMAGING STUDIES: Please see above for CT findings. Please see chart. CARDIOVASCULAR STUDIES: EKG on 02/11/2017, normal sinus rhythm with nonspecific ST and T-wave abnormality per Cardiology report. LABORATORY RESULTS: Sodium 144, potassium 2.9, chloride 104, CO2 of 28, glucose 174, BUN 24, creatinine 2.6, estimated GFR 17.8, calcium 8.2, AST 155, ALT 271, alkaline phosphatase 197, total protein 4.8, albumin 2.3, phosphorus 2.9, magnesium 2.1. White blood cell count 9, hemoglobin is 9.1, hematocrit 27.9, platelet count 164. TSH 0.89, ammonia 26 on 02/10/2017. Blood gas from 02/10/2017, pH 7.477, pCO2 of 34.9, pO2 of 85.1, bicarb 25.7 on 3 L nasal cannula. Blood cultures preliminary, no growth after 24 hours x2 sets from 02/08/2017. PT 13.6, INR 1.3. All other labs and diagnostic studies are as per chart and have been reviewed. Initial urinalysis is negative for bacteria. Culture was not indicated. IMPRESSION 1. Likely toxic and metabolic encephalopathy improving. Waxing and waning mental status with improvement of acute on chronic conditions given age, atrophy, and chronic conditions typically. We do see a lag in full mental status improvement as discussed with Dr. Portillo at the time of evaluation and nothing at this time to suggest an acute primary neurologic etiology such as stroke, seizure, [employer] infection. We will follow the patient closely. 2. Coronary artery disease. 3. Peripheral arterial disease. 4. Acute on chronic kidney disease. 5. Acute on chronic respiratory failure. 6. Iron deficiency anemia. 7. Elevated LFTs, improved. Gastrointestinal following. PLAN The above further testing if needed. We will follow closely. We will check B12 following the morning. Again, the patient is improving. Question if what is her baseline. She has chronic small vessel changes and decent amount of atrophy on her CT scan. She is not showing any signs of any focal neurologic changes or anything to suggest an acute primary neurologic cause of her mental status changes and she certainly has a lot of comorbidities and acute on chronic conditions, which could be contributing to her encephalopathy which again we typically see lag improvement of mental status behind the improvement of the clinical conditions and at baseline, this patient has multiple chronic underlying conditions. We will follow along with you. We thank you very much for allowing us to assist in the care of this patient. Dictated by... Jessica Viveros A.P.R.N. for Staci Portillo M.D. Unit #: [id number] #: [id number] Patient: TYLER HIGHTOWER SYBIL/ellis TD: 02/12/2017 07:17 JOB #: [id number] CONSULTATION REPORT Page 1 of 1 X Jessica Viveros [employer] EXTRACTOR X CONSULTATION REPORT
--- NOTE | ~2017-02-08 | EKG ---
PATIENT: TYLER HIGHTOWER UNIT #: [id number] Ventricular Rate: 74 BPM Atrial Rate: 74 BPM P-R Interval: 168 ms QRS Duration: 98 ms Q-T Interval: 426 ms QTC Calculation(Bezet): 472 ms P [place]: 46 degrees Calculated R [place]: 9 degrees Calculated T [place]: 160 degrees Diagnosis Line: Normal sinus rhythm Diagnosis Line: ST and T wave abnormality, consider lateral ischemia Diagnosis Line: Prolonged QT Diagnosis Line: Abnormal ECG Diagnosis Line: When compared with ECG of 13-FEB-2017 06:32, Diagnosis Line: No significant change was found Diagnosis Line: Confirmed by TONI JIN MD ([id number]) on Diagnosis Line: 02/15/2017 8:53:48 AM INTERPRETING MD: LEILANI
[~2017-02-08 09:41] MED LIST changes: -ALBUTEROL17 GM INH; -ATORVASTATIN CA80 MG PO; -BUMEX1 MG PO; -CALCITRIOL PO; -DULOXETINE HCL60 M1 PO; -FERROUS GLUCON324 M1 PO; -FLOVENT DISKU100 MCG INH; -IPRATR-ALBUTEROL3 ML NEB; -LOPRESSOR PO; -MAGNESIUM400 MG PO; -NORVASC10 MG PO; -NOVOLIN R100 UNITS/; -ONDANSETRON HCL4 M1 PO; -REMERON PO; -ROCEPHIN10 GM PO
[2017-02-08 10:21] LABS: POC - CKMB 3.8 ng/mL (0.0-7.9); POC - TROPONIN <0.05 ng/mL (<=0.05)
[2017-02-08 10:52] LABS: BASOPHIL# 0.1 X10e3 (0-0.3); BASOPHIL% 0.6 % (0-2.5); EOSINOPHIL% 0.2 % (0.0-7.0); HEMATOCRIT 21.6 % (35.0-45.0); LYMPHOCYTE# 1.1 X10e3 (1.0-3.5); LYMPHOCYTE% 10.3 % (17.0-45.0); MEAN CELL VOLUME 98.4 FL (83-96); MEAN CORPUSCULAR HEMOGLOBIN 31.9 PG (28-34); MEAN CORPUSCULAR HGB CONC 32.5 g/dL (30-36); MEAN PLATELET VOLUME 8.4 FL (6.5-11.5); MONOCYTE# 1.5 X10e3 (0-1.0); MONOCYTE% 13.7 % (3.0-12.0); NEUTROPHIL# 8.3 X10e3 (1.5-7.1); NEUTROPHIL% 75.2 % (40-75); PLATELET COUNT 250 X10e3 (140-420); RED BLOOD COUNT 2.19 X10e (3.90-5.30); RED CELL DISTRIBUTION WIDTH 16.6 % (11.0-15.5)
[2017-02-08 10:59] LABS: DIFF IND YES
[2017-02-08 11:02] LABS: INR 1.4; PARTIAL THROMBOPLASTIN TIME 25.2 SECONDS (23.5-31.3); PROTHROMBIN TIME (PATIENT) 14.7 SECONDS (10.0-11.7)
[2017-02-08 11:09] LABS: ARTERIAL BLD GAS O2 SATURATION 91.1 % (90.0-100.0); ARTERIAL BLOOD GAS CARBOXY HB 1.1 %sat (0.0-9.0); ARTERIAL BLOOD GAS HCO3 28.8 mmol/L; ARTERIAL BLOOD GAS MET HB 0.9 %sat (0.0-2.0); ARTERIAL BLOOD GAS PCO2 37.8 mmHg (35.0-45.0)
[2017-02-08 11:10] LABS: ARTERIAL BLOOD GAS ALLEN TEST NORMAL; ARTERIAL BLOOD GAS ART SITE RIGHT RADIAL; ARTERIAL BLOOD GAS DELIVERY NASAL CANNULA; ARTERIAL BLOOD GAS PO2 64.4 mmHg (80.0-100); ARTERIAL DRAW? YES
[2017-02-08 11:32] LABS: NUCLEATED RED BLOOD CELL 2 /100 ([, 0]); PLATELET ESTIMATE NORMAL (NORMAL)
[2017-02-08 11:33] LABS: ANISOCYTOSIS SL; POIKILOCYTOSIS SL
[2017-02-08 11:42] LABS: ALBUMIN SERUM 2.9 g/dL (3.5-5.0); BILIRUBIN, DIRECT 0.8 mg/dL (0.0-0.2); BILIRUBIN,INDIRECT 1.1 mg/dL (0.0-0.9); BILIRUBIN,TOTAL 1.9 mg/dL (0.2-2.0); BUN/CREATININE RATIO 13.86; CALCIUM SERUM 7.9 mg/dL (8.4-10.2); CREATININE SERUM 4.4 mg/dL (0.6-1.4); GLOM FILT RATE Estimated 9.4 mL/min (>60); MAGNESIUM 3.3 mg/dL (1.6-3.0); PHOSPHOROUS 5.3 mg/dL (2.5-4.6); PROTEIN TOTAL SERUM 5.6 g/dL (6.0-8.3)
[2017-02-08 11:44] LABS: POTASSIUM 5.6 mmol/L (3.5-5.1)
[2017-02-08 12:02] LABS: URINE APPEARANCE CLEAR; URINE BLOOD TRACE (NEG); URINE COLOR DK YELLOW; URINE GLUCOSE NEG (NEG); URINE KETONE TRACE (NEG); URINE LEUKOCYTE ESTERASE 1+ (NEG); URINE NITRATE NEG (NEG); URINE PH 5.5 (5-8); URINE PROTEIN 3+ (NEG); URINE SPECIFIC GRAVITY 1.019 (1.003-1.035)
[2017-02-08 12:03] LABS: URINE BACTERIA AUWI NEG (NEGATIVE); URINE SQUAMOUS EPITHELIAL CELL FEW /[HPF]
[2017-02-08 12:08] LABS: POC - CKMB 3.7 ng/mL (0.0-7.9); POC - TROPONIN <0.05 ng/mL (<=0.05)
[2017-02-08 12:15] LABS: URINE BILIRUBIN NEG (NEG)
[2017-02-08 12:20] LABS: CULTURE INDICATED? NO; URINE TRANSITIONAL EPI CELLS FEW /[HPF]
[2017-02-08 12:23] LABS: URINE SOURCE CATH
[2017-02-08] MEDS ORDERED: ASPIRIN81 M2 PO (15:34)
[2017-02-08] MEDS ORDERED: CALCITRIOL PO (15:34)
[2017-02-08] MEDS ORDERED: MAGNESIUM400 MG PO (15:35)
[2017-02-08] MEDS ORDERED: IPRATR-ALBUTEROL3 ML NEB (15:35)
[2017-02-08] MEDS ORDERED: ANTACID325 MG PO (15:35)
[2017-02-08] MEDS ORDERED: FERROUS GLUCON324 M1 PO (15:35)
[2017-02-08] MEDS ORDERED: BUMEX1 MG PO (15:36)
[2017-02-08] MEDS ORDERED: FLOVENT DISKU100 MCG INH (15:36)
[2017-02-08] MEDS ORDERED: SYMBICORT INH (15:36)
[2017-02-08] MEDS ORDERED: RANEXA500 MG PO (15:36)
[2017-02-08] MEDS ORDERED: ACETAMINOPHEN PO (15:37)
[2017-02-08] MEDS ORDERED: REMERON PO (15:38)
[2017-02-08] MEDS ORDERED: NORVASC10 MG PO (15:38)
[2017-02-08] MEDS ORDERED: LOPRESSOR PO (15:38)
[2017-02-08] MEDS ORDERED: DULOXETINE HCL60 M1 PO (15:39)
[2017-02-08] MEDS ORDERED: CLOPIDOGREL75 MG PO (15:39)
[2017-02-08] MEDS ORDERED: ATORVASTATIN CA80 MG PO (15:39)
[2017-02-08] MEDS ORDERED: ROCEPHIN10 GM PO (15:39)
[2017-02-08] MEDS ORDERED: ALBUTEROL17 GM INH (15:40)
[2017-02-08] MEDS ORDERED: NOVOLIN R100 UNITS/ (15:40)
[2017-02-08] MEDS ORDERED: ONDANSETRON HCL4 M1 PO (15:40)
[2017-02-09 05:22] LABS: BASOPHIL# 0.1 X10e3 (0-0.3); EOSINOPHIL# 0.1 X10e3 (0-0.7); EOSINOPHIL% 1.1 % (0.0-7.0); HEMATOCRIT 26.9 % (35.0-45.0); HEMOGLOBIN 8.9 gm/dL (12.0-16.0); LYMPHOCYTE# 0.6 X10e3 (1.0-3.5); LYMPHOCYTE% 6.4 % (17.0-45.0); MEAN CORPUSCULAR HEMOGLOBIN 31.4 PG (28-34); MEAN CORPUSCULAR HGB CONC 33.2 g/dL (30-36); MEAN PLATELET VOLUME 8.3 FL (6.5-11.5); MONOCYTE# 1.3 X10e3 (0-1.0); MONOCYTE% 13.2 % (3.0-12.0); NEUTROPHIL# 7.8 X10e3 (1.5-7.1); NEUTROPHIL% 78.3 % (40-75); PLATELET COUNT 218 X10e3 (140-420); RED BLOOD COUNT 2.84 X10e (3.90-5.30); RED CELL DISTRIBUTION WIDTH 16.7 % (11.0-15.5)
[2017-02-09 05:31] LABS: MEAN CELL VOLUME 94.7 FL (83-96)
[2017-02-09 05:32] LABS: DIFF IND NO
[2017-02-09 05:35] LABS: INR 1.3; PROTHROMBIN TIME (PATIENT) 13.6 SECONDS (10.0-11.7)
[2017-02-09 06:48] LABS: BUN/CREATININE RATIO 11.87; CALCIUM SERUM 7.8 mg/dL (8.4-10.2); CREATININE SERUM 3.2 mg/dL (0.6-1.4); GLOM FILT RATE Estimated 13.9 mL/min (>60)
[2017-02-09 06:49] LABS: POTASSIUM 3.7 mmol/L (3.5-5.1)
[2017-02-09 11:58] LABS: ALBUMIN SERUM 2.7 g/dL (3.5-5.0); BILIRUBIN,TOTAL 1.9 mg/dL (0.2-2.0); BUN/CREATININE RATIO 11.87; CREATININE SERUM 3.2 mg/dL (0.6-1.4); GLOM FILT RATE Estimated 13.9 mL/min (>60); POTASSIUM 3.7 mmol/L (3.5-5.1); PROTEIN TOTAL SERUM 5.3 g/dL (6.0-8.3)
[2017-02-09 11:59] LABS: CALCIUM SERUM 7.8 mg/dL (8.4-10.2)
[2017-02-10 04:19] LABS: ARTERIAL BLD GAS O2 SATURATION 94.9 % (90.0-100.0); ARTERIAL BLOOD GAS CARBOXY HB 0.5 %sat (0.0-9.0); ARTERIAL BLOOD GAS HCO3 25.7 mmol/L; ARTERIAL BLOOD GAS MET HB 0.8 %sat (0.0-2.0); ARTERIAL BLOOD GAS PCO2 34.9 mmHg (35.0-45.0); ARTERIAL BLOOD GAS PO2 85.1 mmHg (80.0-100); ARTERIAL BLOOD GAS pH 7.477 (7.350-7.450)
[2017-02-10 04:32] LABS: ARTERIAL BLOOD GAS ART SITE LEFT BRACHIAL; ARTERIAL BLOOD GAS DELIVERY NASAL CANNULA; ARTERIAL DRAW? YES
[2017-02-10 05:17] LABS: BASOPHIL# 0.1 X10e3 (0-0.3); BASOPHIL% 1.1 % (0-2.5); EOSINOPHIL# 0.1 X10e3 (0-0.7); EOSINOPHIL% 0.9 % (0.0-7.0); HEMATOCRIT 27.7 % (35.0-45.0); HEMOGLOBIN 9.2 gm/dL (12.0-16.0); LYMPHOCYTE# 0.9 X10e3 (1.0-3.5); LYMPHOCYTE% 10.2 % (17.0-45.0); MEAN CELL VOLUME 94.7 FL (83-96); MEAN CORPUSCULAR HEMOGLOBIN 31.5 PG (28-34); MEAN CORPUSCULAR HGB CONC 33.3 g/dL (30-36); MEAN PLATELET VOLUME 8.5 FL (6.5-11.5); MONOCYTE# 1.4 X10e3 (0-1.0); MONOCYTE% 15.5 % (3.0-12.0); NEUTROPHIL# 6.4 X10e3 (1.5-7.1); NEUTROPHIL% 72.3 % (40-75); PLATELET COUNT 180 X10e3 (140-420); RED BLOOD COUNT 2.92 X10e (3.90-5.30); WHITE BLOOD COUNT 8.8 X10e3 (4.0-10.5)
[2017-02-10 05:24] LABS: DIFF IND NO
[2017-02-10 08:42] LABS: ALBUMIN SERUM 2.7 g/dL (3.5-5.0); BUN/CREATININE RATIO 9.58; CALCIUM SERUM 8.1 mg/dL (8.4-10.2); CREATININE SERUM 2.4 mg/dL (0.6-1.4); GLOM FILT RATE Estimated 19.7 mL/min (>60); MAGNESIUM 2.2 mg/dL (1.6-3.0); PHOSPHOROUS 2.8 mg/dL (2.5-4.6); POTASSIUM 3.1 mmol/L (3.5-5.1); PROTEIN TOTAL SERUM 5.3 g/dL (6.0-8.3)
[2017-02-11 05:38] LABS: BASOPHIL# 0.1 X10e3 (0-0.3); BASOPHIL% 1.1 % (0-2.5); DIFF IND NO; EOSINOPHIL# 0.1 X10e3 (0-0.7); EOSINOPHIL% 0.6 % (0.0-7.0); HEMATOCRIT 27.9 % (35.0-45.0); HEMOGLOBIN 9.1 gm/dL (12.0-16.0); LYMPHOCYTE# 0.8 X10e3 (1.0-3.5); LYMPHOCYTE% 8.7 % (17.0-45.0); MEAN CELL VOLUME 95.2 FL (83-96); MEAN CORPUSCULAR HEMOGLOBIN 31.1 PG (28-34); MEAN CORPUSCULAR HGB CONC 32.7 g/dL (30-36); MEAN PLATELET VOLUME 8.3 FL (6.5-11.5); MONOCYTE# 1.4 X10e3 (0-1.0); MONOCYTE% 15.8 % (3.0-12.0); NEUTROPHIL# 6.6 X10e3 (1.5-7.1); NEUTROPHIL% 73.8 % (40-75); PLATELET COUNT 164 X10e3 (140-420); RED BLOOD COUNT 2.93 X10e (3.90-5.30); RED CELL DISTRIBUTION WIDTH 17.7 % (11.0-15.5)
[2017-02-11 06:44] LABS: ALBUMIN SERUM 2.3 g/dL (3.5-5.0); BILIRUBIN,TOTAL 1.3 mg/dL (0.2-2.0); BUN/CREATININE RATIO 9.23; CALCIUM SERUM 8.2 mg/dL (8.4-10.2); CREATININE SERUM 2.6 mg/dL (0.6-1.4); GLOM FILT RATE Estimated 17.8 mL/min (>60); MAGNESIUM 2.1 mg/dL (1.6-3.0); PHOSPHOROUS 2.9 mg/dL (2.5-4.6); PROTEIN TOTAL SERUM 4.8 g/dL (6.0-8.3)
[2017-02-11 06:54] LABS: POTASSIUM 2.9 mmol/L (3.5-5.1)
[2017-02-11 09:33] LABS: BODY SURFACE AREA 1.88
[2017-02-12 05:21] LABS: BASOPHIL# 0.1 X10e3 (0-0.3); EOSINOPHIL# 0.2 X10e3 (0-0.7); EOSINOPHIL% 1.9 % (0.0-7.0); HEMATOCRIT 25.9 % (35.0-45.0); HEMOGLOBIN 8.4 gm/dL (12.0-16.0); LYMPHOCYTE# 0.8 X10e3 (1.0-3.5); LYMPHOCYTE% 9.4 % (17.0-45.0); MEAN CELL VOLUME 96.8 FL (83-96); MEAN CORPUSCULAR HEMOGLOBIN 31.4 PG (28-34); MEAN CORPUSCULAR HGB CONC 32.5 g/dL (30-36); MEAN PLATELET VOLUME 8.4 FL (6.5-11.5); MONOCYTE# 1.3 X10e3 (0-1.0); MONOCYTE% 15.6 % (3.0-12.0); NEUTROPHIL# 5.9 X10e3 (1.5-7.1); NEUTROPHIL% 72.1 % (40-75); PLATELET COUNT 135 X10e3 (140-420); RED BLOOD COUNT 2.68 X10e (3.90-5.30); RED CELL DISTRIBUTION WIDTH 18.6 % (11.0-15.5); WHITE BLOOD COUNT 8.2 X10e3 (4.0-10.5)
[2017-02-12 05:39] LABS: DIFF IND NO
[2017-02-12 06:21] LABS: ALBUMIN SERUM 2.3 g/dL (3.5-5.0); BILIRUBIN,TOTAL 1.3 mg/dL (0.2-2.0); BUN/CREATININE RATIO 12.08; CREATININE SERUM 2.4 mg/dL (0.6-1.4); GLOM FILT RATE Estimated 19.7 mL/min (>60); MAGNESIUM 1.9 mg/dL (1.6-3.0); PHOSPHOROUS 2.2 mg/dL (2.5-4.6); POTASSIUM 3.4 mmol/L (3.5-5.1); PROTEIN TOTAL SERUM 5.2 g/dL (6.0-8.3)
[2017-02-12 06:38] LABS: FOLATE (FOLIC ACID) 9.3 ng/mL (>5.8)
[2017-02-13 06:46] LABS: BASOPHIL# 0.1 X10e3 (0-0.3); EOSINOPHIL# 0.2 X10e3 (0-0.7); HEMATOCRIT 25.8 % (35.0-45.0); HEMOGLOBIN 8.4 gm/dL (12.0-16.0); LYMPHOCYTE# 0.9 X10e3 (1.0-3.5); LYMPHOCYTE% 11.1 % (17.0-45.0); MEAN CELL VOLUME 96.9 FL (83-96); MEAN CORPUSCULAR HEMOGLOBIN 31.4 PG (28-34); MEAN CORPUSCULAR HGB CONC 32.4 g/dL (30-36); MEAN PLATELET VOLUME 8.9 FL (6.5-11.5); MONOCYTE# 1.1 X10e3 (0-1.0); MONOCYTE% 13.1 % (3.0-12.0); NEUTROPHIL# 6.2 X10e3 (1.5-7.1); NEUTROPHIL% 72.8 % (40-75); PLATELET COUNT 124 X10e3 (140-420); RED BLOOD COUNT 2.67 X10e (3.90-5.30); RED CELL DISTRIBUTION WIDTH 18.2 % (11.0-15.5); WHITE BLOOD COUNT 8.5 X10e3 (4.0-10.5)
[2017-02-13 06:49] LABS: DIFF IND NO
[2017-02-13 07:25] LABS: ALBUMIN SERUM 2.4 g/dL (3.5-5.0); BUN/CREATININE RATIO 14.4; CALCIUM SERUM 8.2 mg/dL (8.4-10.2); CREATININE SERUM 2.5 mg/dL (0.6-1.4); GLOM FILT RATE Estimated 18.7 mL/min (>60); MAGNESIUM 2.1 mg/dL (1.6-3.0); PHOSPHOROUS 2.5 mg/dL (2.5-4.6); POTASSIUM 3.8 mmol/L (3.5-5.1); PROTEIN TOTAL SERUM 5.6 g/dL (6.0-8.3)
[2017-02-14 05:56] LABS: HEMATOCRIT 25.9 % (35.0-45.0); HEMOGLOBIN 8.4 gm/dL (12.0-16.0); MEAN CELL VOLUME 97.3 FL (83-96); MEAN CORPUSCULAR HEMOGLOBIN 31.6 PG (28-34); MEAN CORPUSCULAR HGB CONC 32.5 g/dL (30-36); MEAN PLATELET VOLUME 9.1 FL (6.5-11.5); RED BLOOD COUNT 2.66 X10e (3.90-5.30); RED CELL DISTRIBUTION WIDTH 19.1 % (11.0-15.5); WHITE BLOOD COUNT 7.6 X10e3 (4.0-10.5)
[2017-02-14 06:59] LABS: ALBUMIN SERUM 2.4 g/dL (3.5-5.0); BILIRUBIN,TOTAL 0.8 mg/dL (0.2-2.0); BUN/CREATININE RATIO 14.58; CREATININE SERUM 2.4 mg/dL (0.6-1.4); GLOM FILT RATE Estimated 19.7 mL/min (>60); MAGNESIUM 2.2 mg/dL (1.6-3.0); PHOSPHOROUS 2.7 mg/dL (2.5-4.6); POTASSIUM 3.8 mmol/L (3.5-5.1); PROTEIN TOTAL SERUM 5.5 g/dL (6.0-8.3)
[2017-02-14 14:15] LABS: HA AB IGM (HEPPAN) Nonreactive (()); HB CORE AB IGM (HEPPAN) Nonreactive (Nonreactive); HB S AG (HEPPAN) Nonreactive (Nonreactive); HEP C AB (HEPPAN) Nonreactive (Nonreactive); HEP C AB SIGNAL TO CUTOFF 0.02 ratio (<1.00)
[2017-02-15 05:22] LABS: HEMATOCRIT 25.4 % (35.0-45.0); HEMOGLOBIN 8.2 gm/dL (12.0-16.0); MEAN CELL VOLUME 98.8 FL (83-96); MEAN CORPUSCULAR HGB CONC 32.4 g/dL (30-36); MEAN PLATELET VOLUME 9.9 FL (6.5-11.5); RED BLOOD COUNT 2.57 X10e (3.90-5.30); RED CELL DISTRIBUTION WIDTH 19.6 % (11.0-15.5); WHITE BLOOD COUNT 7.4 X10e3 (4.0-10.5)
[2017-02-15 05:54] LABS: ALBUMIN SERUM 2.2 g/dL (3.5-5.0); BILIRUBIN,TOTAL 0.8 mg/dL (0.2-2.0); CALCIUM SERUM 8.1 mg/dL (8.4-10.2); CREATININE SERUM 2.4 mg/dL (0.6-1.4); GLOM FILT RATE Estimated 19.7 mL/min (>60); MAGNESIUM 2.2 mg/dL (1.6-3.0); PHOSPHOROUS 2.6 mg/dL (2.5-4.6); POTASSIUM 3.8 mmol/L (3.5-5.1)
[2017-02-16 07:44] LABS: HEMATOCRIT 25.9 % (35.0-45.0); HEMOGLOBIN 8.3 gm/dL (12.0-16.0); MEAN CELL VOLUME 99.3 FL (83-96); MEAN CORPUSCULAR HEMOGLOBIN 31.8 PG (28-34); MEAN PLATELET VOLUME 9.4 FL (6.5-11.5); RED BLOOD COUNT 2.6 X10e (3.90-5.30); RED CELL DISTRIBUTION WIDTH 19.6 % (11.0-15.5); WHITE BLOOD COUNT 5.9 X10e3 (4.0-10.5)
[2017-02-16 08:06] LABS: BUN/CREATININE RATIO 13.07; CALCIUM SERUM 8.4 mg/dL (8.4-10.2); CREATININE SERUM 2.6 mg/dL (0.6-1.4); GLOM FILT RATE Estimated 17.8 mL/min (>60); POTASSIUM 4.3 mmol/L (3.5-5.1)
[2017-02-18 06:49] LABS: HEMATOCRIT 25.5 % (35.0-45.0); HEMOGLOBIN 8.3 gm/dL (12.0-16.0); MEAN CELL VOLUME 97.4 FL (83-96); MEAN CORPUSCULAR HEMOGLOBIN 31.6 PG (28-34); MEAN CORPUSCULAR HGB CONC 32.4 g/dL (30-36); MEAN PLATELET VOLUME 8.8 FL (6.5-11.5); RED BLOOD COUNT 2.61 X10e (3.90-5.30); RED CELL DISTRIBUTION WIDTH 19.7 % (11.0-15.5)
[2017-02-18 07:34] LABS: ALBUMIN SERUM 2.4 g/dL (3.5-5.0); BILIRUBIN,TOTAL 0.7 mg/dL (0.2-2.0); BUN/CREATININE RATIO 12.5; CALCIUM SERUM 8.2 mg/dL (8.4-10.2); CREATININE SERUM 2.4 mg/dL (0.6-1.4); GLOM FILT RATE Estimated 19.7 mL/min (>60); MAGNESIUM 1.5 mg/dL (1.6-3.0); POTASSIUM 3.4 mmol/L (3.5-5.1); PROTEIN TOTAL SERUM 5.3 g/dL (6.0-8.3)
[2017-02-19 05:38] LABS: HEMATOCRIT 25.6 % (35.0-45.0); HEMOGLOBIN 8.2 gm/dL (12.0-16.0); MEAN CELL VOLUME 98.6 FL (83-96); MEAN CORPUSCULAR HEMOGLOBIN 31.8 PG (28-34); MEAN CORPUSCULAR HGB CONC 32.3 g/dL (30-36); MEAN PLATELET VOLUME 8.7 FL (6.5-11.5); RED BLOOD COUNT 2.59 X10e (3.90-5.30); RED CELL DISTRIBUTION WIDTH 19.8 % (11.0-15.5); WHITE BLOOD COUNT 5.1 X10e3 (4.0-10.5)
[2017-02-19 06:59] LABS: ALBUMIN SERUM 2.4 g/dL (3.5-5.0); BILIRUBIN,TOTAL 0.8 mg/dL (0.2-2.0); BUN/CREATININE RATIO 11.11; CALCIUM SERUM 8.2 mg/dL (8.4-10.2); CREATININE SERUM 2.7 mg/dL (0.6-1.4); MAGNESIUM 1.6 mg/dL (1.6-3.0); PHOSPHOROUS 2.1 mg/dL (2.5-4.6); POTASSIUM 3.9 mmol/L (3.5-5.1); PROTEIN TOTAL SERUM 5.3 g/dL (6.0-8.3)
== END 2017-02-19 19:45 | DRG 91 ==
LOC: CED 09:41 → CEDOF 15:20 → CED 18:31 → CEDOF 18:31 → CICCU2 20:34 → C3A PCU 02-12 14:07
PROVIDERS: Emergency Medicine; Internal Medicine; Internal Medicine Nephrology; Internal Medicine Pulmonary Disease; Nurse Practitioner
PROC: 30233N1 Transfusion of Nonautologous Red Blood Cells into Peripheral Vein, Percutaneous Approach (ICD-10-PCS; principal; 2017-02-08)
PROC: 02H633Z Insertion of Infusion Device into Right Atrium, Percutaneous Approach (ICD-10-PCS; 2017-02-08)
PROC: B214YZZ Fluoroscopy of Right Heart using Other Contrast (ICD-10-PCS; 2017-02-08)
PROC: B244YZZ Ultrasonography of Right Heart using Other Contrast (ICD-10-PCS; 2017-02-08)
PROC: 5A1D60Z (ICD-10-PCS; 2017-02-08)
DX: G92 Toxic encephalopathy (principal); K72.00 Acute and subacute hepatic failure without coma; J96.21 Acute and chronic respiratory failure with hypoxia; J69.0 Pneumonitis due to inhalation of food and vomit; I50.23 Acute on chronic systolic (congestive) heart failure; K31.84 Gastroparesis; E83.41 Hypermagnesemia; E11.40 Type 2 diabetes mellitus with diabetic neuropathy, unspecified; N18.6 End stage renal disease; N17.9 Acute kidney failure, unspecified; I13.0 Hypertensive heart and chronic kidney disease with heart failure and stage 1 through stage 4 chronic kidney disease, or unspecified chronic kidney disease; E11.22 Type 2 diabetes mellitus with diabetic chronic kidney disease; I73.9 Peripheral vascular disease, unspecified; E83.39 Other disorders of phosphorus metabolism; E87.5 Hyperkalemia; J44.9 Chronic obstructive pulmonary disease, unspecified; Z90.49 Acquired absence of other specified parts of digestive tract; Z98.51 Tubal ligation status; Z89.432 Acquired absence of left foot; Z89.431 Acquired absence of right foot; E11.43 Type 2 diabetes mellitus with diabetic autonomic (poly)neuropathy; F17.210 Nicotine dependence, cigarettes, uncomplicated; Z79.4 Long term (current) use of insulin; D50.9 Iron deficiency anemia, unspecified; K21.9 Gastro-esophageal reflux disease without esophagitis; E11.21 Type 2 diabetes mellitus with diabetic nephropathy; H40.9 Unspecified glaucoma; Z79.82 Long term (current) use of aspirin; D63.1 Anemia in chronic kidney disease; E87.6 Hypokalemia; I25.119 Atherosclerotic heart disease of native coronary artery with unspecified angina pectoris
CPT/HCPCS: 36415; 36600; 70450; 71010; 71020; 71250; 74000; 74176; 76937; 77001; 80048; 80053; 80074; 80076; 81003; 82140; 82308; 82553; 82575; 82607; 82728; 82746; 82803; 82947; 83540; 83550; 83605; 83735; 83880; 84100; 84132; 84443; 84484; 85025; 85027; 85610; 85730; 86705; 86707; 86850; 86900; 86901; 86923; 87040; 87070; 87077; 87186; 87205; 87340; 87350; 92526; 92610; 93005; 94010; 94640; 94760; 94761; 95816; 96365; 96375; 97110; 97116; 97163; 97167; 97530; 97535; 99285; C1894; G8978-GP; G8979-GP; G8987-GO; G8988-GO; G8996-GN; G8997-GN; G8998-GN; J0360; J0610; J0692; J0885; J1644; J1650; J1815; J2405; J2543; J2916; J3260; J3370; P9016